=== PATIENT | male | born 1960 | race Asian ===

== ENCOUNTER 2016-08-23 11:35 | Emergency (ER) | payer OTHER ==
[2016-08-23 12:11] VITALS: TEMP 98.1; BMI 32.1
[2016-08-23] MEDS ORDERED: OXYCODONE/APAP 5/325MG COMBO TABLET PO ONE (13:20)
--- NOTE | 2016-08-23 13:22 | PDOC ---
History of Present Illness - History of Present Illness Initial Comments: 08/23/16 15:49 Patient is a 55 year old male with significant medical hx of gout and diabetes who is presenting to the ED with swelling to the left knee for four days. Patient reports he is unable to bear weight to his left knee since due to pain. Daughter reports the patient had a subjective fever on Monday and that the swelling was also significantly worse, but seems to have improved. The patient states that hes been working every day; he works as a local company truck driver. Denies chills, recent trauma, heavy lifting, hip pain, or injuries. Surgical Hx: Left shoulder arthroscopy (Charan Vasquez MD) <Michelle Pollard - Last Filed: 08/23/16 15:49> <Beto Borjas - Last Filed: 08/23/16 20:34> - General Chief Complaint: Pain Stated Complaint: SWOLLEN LT KNEE Time Seen by Provider: 08/23/16 12:28 Past History <Michelle Pollard - Last Filed: 08/23/16 15:49> - Past Medical History Anemia: No Asthma: No Cardiac Disorders: No CVA: No COPD: No CHF: No Dementia: No Diabetes: Yes GI Disorders: No Disorders: No HTN: No (VARIES) Hypercholesterolemia: No Liver Disease: No Seizures: No Thyroid Disease: No Other medical history: GOUT - Surgical History Orthopedic Surgery: Yes (LEFT SHOULDER ARTHROSCOPY) - Psycho/Social/Smoking Cessation Hx Suicidal Ideation: No Smoking History: Never smoked Hx Alcohol Use: No Drug/Substance Use Hx: No Substance Use Type: Alcohol <Beto Borjas - Last Filed: 08/23/16 20:34> - Past Medical History Allergies/Adverse Reactions: Allergies Allergy/AdvReac Type Severity Reaction Status Date / Time No Known Drug Allergies Allergy Verified 08/23/16 12:05 Home Medications: Ambulatory Orders Indomethacin 25 mg PO BID 08/23/16 Oxycodone HCl/Acetaminophen [Percocet 5-325 mg Tablet -] 1 combo PO Q6H PRN #14 tablet MDD 4 08/23/16 Review of Systems - Review of Systems Comments:: 08/23/16 15:50 CONSTITUTIONAL: No reported: Fever, Chills, Diaphoresis, Generalized Weakness, Malaise, Loss of Appetite HEENT: No reported: Rhinorrhea, Nasal Congestion, Throat Pain, Throat Swelling, Difficulty Swallowing, Mouth Swelling, Ear Pain, Eye Pain, Visual Changes CARDIOVASCULAR: No reported: Chest Pain, Syncope, Palpitations, Irregular Heart Rate, Lightheadedness, Peripheral Edema RESPIRATORY: No reported: Cough, Shortness of Breath, SOB with Exertion, Orthopnea, Wheezing , Stridor, Hemoptysis GASTROINTESTINAL: No reported: Abdominal pain, Abdominal Distension, Nausea, Vomiting, Diarrhea, Constipation, Melena, Hematochezia GENITOURINARY: No reported: Dysuria, Frequency, Urgency, Hesitancy, Flank Pain, Genital Pain MUSCULOSKELETAL: Reported: Bilateral Knee Pain and Swelling No reported: Myalgia, Back pain, Neck Pain SKIN: No reported: Rash, Itching, Pallor HEMEATOLOGIC/IMMUNOLOGIC: No reported: Easy Bleeding, Easy Bruising, Lymphadenopathy, Frequent infections ENDOCRINE: No reported: Unexplained Weight Gain, Unexplained Weight Loss, Heat Intolerance , Cold Intolerance NEUROLOGIC: No reported: Headache, Focal Weakness, Paresthesias, Vertigo, Lightheadedness, Unsteady Gait, Seizure, Mental Status Changes, Incontinence PSYCHIATRIC: No reported: Anxiety, Depression <Atul,Michelle - Last Filed: 08/23/16 15:49> *Physical Exam - Vital Signs Last Vital Signs Temp Pulse Resp BP Pulse Ox 98.1 F 91 H 19 133/92 95 08/23/16 12:06 08/23/16 12:06 08/23/16 12:06 08/23/16 12:06 08/23/16 12:06 - Physical Exam Comments: 08/23/16 15:50 GENERAL: The patient is awake, alert, and fully oriented, Nontoxic - in no acute distress. ENT: Normal voice, Moist mucous membranes. LUNGS: Breath sounds equal, clear to auscultation bilaterally. No wheezes, no rhonchi, no rales. HEART: Regular rate and rhythm, normal S1 and S2 without murmur, rub or gallop. ABDOMEN: Soft, nontender, normoactive bowel sounds. No guarding, no rebound. . No CVA tenderness EXTREMITIES:large prepapatellar effusion on L knee, no erythema, no warmth, able to ROM knee approx 30 degrees, no calf tendenress or swelling. No focal bony tenderness. NEUROLOGICAL: No facial assymetry, Normal speech, omoving all 4 extremities spontaneously and symmetrically PSYCH: Normal mood, normal affect. SKIN: Warm, Dry, normal turgor, <Michelle Pollard - Last Filed: 08/23/16 15:49> - Vital Signs Last Vital Signs Temp Pulse Resp BP Pulse Ox 98.1 F 91 H 19 133/92 95 08/23/16 12:06 08/23/16 12:06 08/23/16 12:06 08/23/16 12:06 08/23/16 12:06 <Beto Borjas - Last Filed: 08/23/16 20:34> ED Treatment Course - LABORATORY CBC & Chemistry Diagram: 08/23/16 14:11 08/23/16 14:11 - RADIOLOGY Radiograph Interpretation: 08/23/16 13:58 Left Knee X-Ray Impression: Arthritic changes. Suprapatellar joint effusion. No acute fracture appreciated. Reported By: Beni Espinoza MD <Michelle Pollard - Last Filed: 08/23/16 15:49> - LABORATORY CBC & Chemistry Diagram: 08/23/16 14:11 08/23/16 14:11 <Beto Borjas - Last Filed: 08/23/16 20:34> Medical Decision Making - Medical Decision Making 08/23/16 13:20 55y M hx gout presents with 4 days of L knee pain and swelling, family notes subjective fever on monday and significant swelling, however swelling has decresaed, but pt still in persistent pain so presents to the ED. Pt denies any recent trauma/injury. pt taking indomethicin without improvement. will obtain cbc, cmp, uric acid level no signs of septic arthritis - no warmth/induration/erythema suspect large knee effusion will obtain xrya to r/o occult fx A portion of this note was documented by scribe services under my direction. I have reviewed the details of the note, within reason, and agree with the documentation with the following case summary and management plan written by me 08/23/16 15:27 labs reviewed xray noted for large srprapatallar effusion will have pt fu with dr. schafer for reealuation pt feleling improved with meds I discussed the physical exam findings, ancillary test results and final diagnoses with the patient. I answered all of the patient's questions. The patient was satisfied with the care received and felt comfortable with the discharge plan and treatment plan. The patient will call their primary care physician within 24 hours to arrange follow-up and will return to the Emergency Department with any new, persistent or worsening symptoms. <Beto Borjas - Last Filed: 08/23/16 20:34> *DC/Admit/Observation/Transfer - Attestations Scribe Attestion: 08/23/16 15:51 Documentation prepared by Michelle Pollard, acting as medical diagnostic radiographer for Beto Borjas MD. <Michelle Pollard - Last Filed: 08/23/16 15:49> - Discharge Dispostion Admit: No <Beto Borjas - Last Filed: 08/23/16 20:34> Diagnosis at time of Disposition: Effusion of knee Qualifiers: Laterality: left Qualified Code(s): M25.462 - Effusion, left knee - Discharge Dispostion Disposition: HOME Condition at time of disposition: Improved - Prescriptions Prescriptions: Oxycodone HCl/Acetaminophen [Percocet 5-325 mg Tablet -] 1 combo PO Q6H PRN #14 tablet MDD 4 PRN Reason: Pain - Referrals Referrals: Andrzej England MD [Primary Care Provider] - Niels Schafer MD [Staff Physician] - - Patient Instructions Printed Discharge Instructions: DI for Knee Effusion Additional Instructions: Return to the emergency department immediately with ANY new, persistent or worsening symptoms. You MUST call and follow up with your doctor tomorrow for further evaluation of your symptoms. Results were discussed with you. Please make sure your doctor reviews the results of your emergency evaluation. If you had any xrays during your visit, it was read preliminarily by myself, a Radiologist will review it and if there are any additional findings we will call you. Print Language: UPPER SORBIAN
[2016-08-23] MEDS ORDERED: OXYCODONE/APAP 5/325MG COMBO TABLET ONE (14:04)
[2016-08-23 14:41] LABS: MCH 29.5 pg (25.7-33.7); MCHC 32.2 g/dl (32.0-35.9); MEAN CELL VOLUME 91.7 fl (80-96); MEAN PLT VOLUME 8.2 fl (7.5-11.1); PLATELET COUNT 260 K/MM3 (134-434); RDW 14.9 % (11.9-15.9); WHITE BLOOD COUNT 12.7 K/mm3 (4.0-10.0)
[2016-08-23 14:56] LABS: ALBUMIN 3.2 g/dl (3.4-5.0); ALK PHOS 78 U/L (45-117); ANION GAP 7 (8-16); BILIRUBIN,TOTAL 0.7 mg/dL (0.2-1.0); CALCIUM 9.2 mg/dL (8.5-10.1); CO2 31 mmol/L (21-32); GLUCOSE,RANDOM 158 mg/dL (74-106); SGOT/AST 14 U/L (15-37); SGPT/ALT 25 U/L (12-78); TOT PROT 6.7 g/dl (6.4-8.2)
[2016-08-23 15:09] LABS: URIC ACID 5.3 mg/dL (2.6-7.2)
[2016-08-23 18:52] VITALS: BP 134/68; PULSE 86
== END 2016-08-23 15:38 | disposition home or self-care (01) ==
LOC: JER 11:35
DX: M25.462 Effusion, left knee (principal); E11.9 Type 2 diabetes mellitus without complications; M10.9 Gout, unspecified
CPT/HCPCS: 36415; 73560-TC-LT; 80053; 84550; 85027; 99282-25

== ENCOUNTER 2019-02-05 10:50 | Emergency (ER) | payer OTHER ==
[2019-02-05 11:03] VITALS: BP 132/83; PULSE 98; TEMP 98.2; BMI 31.0
[2019-02-05] MEDS ORDERED: diazePAM 2 MG TABLET PO ONE (11:24)
[2019-02-05] MEDS ORDERED: KETOROLAC TROMETHAMINE 30 MG/1 ML VIAL IM ONE (11:25)
[2019-02-05] MEDS ORDERED: KETOROLAC TROMETHAMINE 30 MG/1 ML VIAL ONE (11:26)
[2019-02-05] MEDS ORDERED: diazePAM 2 MG TABLET ONE (11:26)
--- NOTE | 2019-02-05 11:28 | PDOC ---
History of Present Illness - General Chief Complaint: Chest Pain Stated Complaint: CHEST PAIN Time Seen by Provider: 02/05/19 11:22 - History of Present Illness Initial Comments: 02/05/19 11:36 The patient is a 58 year old male with a history of DM who presents for evaluation of chest pain. The patient reports that he went mariela jumping 3 days ago and since then has been having bilateral poorly described chest pain worse with movement prompting his presentation to the ED for further evaluation. The patient denies similar symptoms in the past and has not taken any medication at home. He otherwise denies fevers, chills, SOB, nausea, vomiting, abdominal pain, or changes with urination or bowel movements. Past History - Past Medical History Allergies/Adverse Reactions: Allergies Allergy/AdvReac Type Severity Reaction Status Date / Time No Known Drug Allergies Allergy Verified 02/05/19 11:03 Home Medications: Ambulatory Orders Indomethacin 25 mg PO BID 08/23/16 Oxycodone HCl/Acetaminophen [Percocet 5-325 mg Tablet -] 1 combo PO Q6H PRN #14 tablet MDD 4 08/23/16 Naproxen [Naprosyn -] 500 mg PO BID #14 tablet 02/05/19 Anemia: No Asthma: No Cardiac Disorders: No CVA: No COPD: No CHF: No Dementia: No Diabetes: Yes GI Disorders: No Disorders: No HTN: No (VARIES) Hypercholesterolemia: No Liver Disease: No Seizures: No Thyroid Disease: No - Surgical History Orthopedic Surgery: Yes (LEFT SHOULDER ARTHROSCOPY) - Immunization History Immunization Up to Date: Yes - Suicide/Smoking/Psychosocial Hx Smoking History: Never smoked Have you smoked in the past 12 months: No Information on smoking cessation initiated: No Hx Alcohol Use: No Drug/Substance Use Hx: No Substance Use Type: Alcohol Review of Systems - Review of Systems Comments:: 02/05/19 11:53 Constitutional: No fevers, chills, fatigue, malaise HEENT: No Rhinorrhea, nasal congestion, visual changes Cardiovascular: Chest pain. No syncope, palpitations, lightheadedness Respiratory: No Cough, SOB, Hemoptysis, Gastrointestinal: No Abdominal pain, Nausea, Vomiting, Constipation, Diarrhea, Melena Genitourinary: No Dysuria, Frequency, Urgency, Hesitancy, Hematuria, Flank pain Musculoskeletal: No Myalgia, arthralgia Skin: No rashes, itching, bruising, pallor Neurologic: No Headache, Dizziness, Numbness, Weakness, or Tingling Psychiatric: No Hallucinations. No SI or HI *Physical Exam - Vital Signs Last Vital Signs Temp Pulse Resp BP Pulse Ox 98.2 F 98 H 18 132/83 97 02/05/19 10:58 02/05/19 10:58 02/05/19 10:58 02/05/19 10:58 02/05/19 10:58 - Physical Exam Comments: 02/05/19 11:53 General Appearance: Nourished. No Apparent Distress HEENT: No Pharyngeal Erythema, Tonsillar Exudate, Tonsillar Erythema Neck: No Cervical Lymphadenopathy Respiratory/Chest: Lungs Clear, Normal Breath Sounds. Reproducible tenderness to palpation along the sternal borders. No Crackles, Rales, Rhonchi, Wheezing Cardiovascular: Regular Rhythm, Regular Rate. No Murmur, Gallops, Rubs Gastrointestinal/Abdominal: Normal Bowel Sounds, Soft. No Guarding, Rebound, Tenderness Musculoskeletal: No CVA Tenderness Extremity: Normal Capillary Refill Integumentary: Normal Color, Dry, Warm Neurologic: Fully Oriented, Alert, Normal Mood/Affect, Normal Response, Heart Score/ECG Review #1 ECG reviewed & interpreted by me at: 11:54 02/05/19 11:54 HR 88 [place] 158 QRS 100 QTc 471 Normal Sinus Rhythm Left anterior fascicular block No Acute ST Changes ED Treatment Course - LABORATORY CBC & Chemistry Diagram: 02/05/19 11:30 Medical Decision Making - Medical Decision Making 02/05/19 11:38 The patient is a 58 year old male with a history of DM who presents for evaluation of chest pain. Differential includes but is not limited to: ACS, Musculoskeletal, Costochondritis, Infectious, Metabolic Derangement. Given the patient's his history and physical exam, we will obtain a cbc, cmp, ekg, chest plain film to evaluate further. It is likely the patient's symptoms are musculoskeletal in nature given his recent mariela jumping. We will treat with toradol and valium and will continue to monitor and reassess while here in the ED. 02/05/19 13:13 Cbc, troponin are unremarkable. Chest plain film is unremarkable. The patient was reassessed and reports improvement in their symptoms. It is likely the patient's symptoms are musculoskeletal in nature. We are comfortable discharging the patient home in stable condition. Patient and family made aware of impression and plan, return precautions discussed including but not limited to worsening pain or symptoms, fevers, or signs of infection, chest pain, respiratory distress, inability to tolerate oral intake, dehydration, syncope, or neurologic changes. The patient is to follow up with PMD as recommended within 1 week, follow up information provided and the patient will call for an appointment. The patient is to take medications as instructed for duration of time and continue with supportive care, avoid triggers and precipitants. Patient is safe for outpatient follow-up. *DC/Admit/Observation/Transfer Diagnosis at time of Disposition: Chest pain Qualifiers: Chest pain type: unspecified Qualified Code(s): R07.9 - Chest pain, unspecified - Discharge Dispostion Disposition: HOME Condition at time of disposition: Stable - Prescriptions Prescriptions: Naproxen [Naprosyn -] 500 mg PO BID #14 tablet - Referrals - Patient Instructions Printed Discharge Instructions: DI for Atypical Chest Pain Additional Instructions: 1) Please follow-up with your primary care doctor in the next 2-3 days. Please call tomorrow to schedule a follow up appointment. If you cannot follow up with your doctor within 1 week please return to the Emergency Department for any urgent issues. 2) Your laboratory / imaging results were normal here in the ER. 3) If you have any worsening of symptoms or any other concerns, please return to the ER immediately. Return if worsening symptoms including fevers, headache, vomiting, visual or hearing disturbances, abdominal pain, chest pain, shortness of breath, syncope, dehydration, inability to take things by mouth/vomiting, altered mental status, or worsening concerning symptoms. 4) Please continue taking your home medications as directed. Side effects may include upset stomach, abdominal pain, vomiting, or diarrhea. Do not drink alcohol with your medications. - Post Discharge Activity
[2019-02-05 12:18] LABS: BASO % 0.6 % (0-2.0); EOS % 1.7 % (0-4.5); HEMATOCRIT 45.4 % (35.4-49); HEMOGLOBIN 15.2 GM/dL (11.7-16.9); LYMPH % 20.4 % (8-40); MCH 30.8 pg (25.7-33.7); MCHC 33.5 g/dl (32.0-35.9); MEAN CELL VOLUME 92.1 fl (80-96); MEAN PLT VOLUME 8.4 fl (7.5-11.1); NEUT % 71.3 % (42.8-82.8); PLATELET COUNT 217 K/MM3 (134-434); RBC 4.92 M/mm3 (4.00-5.60); RDW 13.4 % (11.9-15.9); WHITE BLOOD COUNT 7.2 K/mm3 (4.0-10.0)
--- NOTE | 2019-02-05 13:01 | EKG ---
Test Reason : Blood Pressure : / mmHG Vent. Rate : 088 BPM Atrial Rate : 088 BPM P-R Int : 158 ms QRS Dur : 100 ms QT Int : 390 ms P-R-T Axes : 046 -83 044 degrees QTc Int : 471 ms NORMAL SINUS RHYTHM POSSIBLE LEFT ATRIAL ENLARGEMENT LEFT ANTERIOR FASCICULAR BLOCK ABNORMAL ECG WHEN COMPARED WITH ECG OF 31-MAY-2013 13:23, NO SIGNIFICANT CHANGE WAS FOUND Confirmed by MD Bebeto, Truong ([id number]) on 02/05/2019 1:00:37 PM Referred By: Confirmed By:Truong Tate MD
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
== END 2019-02-05 13:16 | disposition home or self-care (01) ==
LOC: JER 10:50
PROC: 3E0233Z Introduction of Anti-inflammatory into Muscle, Percutaneous Approach (ICD-10-PCS; principal; 2019-02-05)
DX: R07.9 Chest pain, unspecified (principal); E11.9 Type 2 diabetes mellitus without complications; W17.89XA Other fall from one level to another, initial encounter; Y93.39 Activity, other involving climbing, rappelling and jumping off; Y92.89 Other specified places as the place of occurrence of the external cause; Y99.8 Other external cause status
CPT/HCPCS: 36415; 71045-TC-FY; 82550; 84484; 85025; 93005; 93010; 99282-25

== ENCOUNTER 2020-06-04 07:43 | Inpatient (IN) | payer OTHER ==
[2020-06-04] MEDS ORDERED: ACETAMINOPHEN 500 MG TABLET (FP) PO ONE (07:55)
[2020-06-04] MEDS ORDERED: DEXAMETHASONE 4 MG TABLET (FP) PO ONE ×2 (07:58→08:07)
[2020-06-04] MEDS ORDERED: DEXAMETHASONE SOD PHOSPHATE 10 MG/1 ML VIAL ONE (08:53)
[2020-06-04 09:26] LABS: INR 1.17 (0.83-1.09); PROTHROMBIN TIME (PATIENT) 14.3 SEC (9.7-13.0)
[2020-06-04 09:29] LABS: ACTIVATED PTT 34.1 SECONDS (25.2-36.5)
[2020-06-04 09:33] LABS: CHLORIDE 102 mmol/L (98-107); POTASSIUM 4.4 mmol/L (3.5-5.1); SODIUM 135 mmol/L (136-145)
[2020-06-04 09:35] LABS: CALCIUM 7.7 mg/dL (8.5-10.1)
[2020-06-04 09:36] LABS: BASO % 0.4 % (0-2.0); HEMATOCRIT 44.5 % (35.4-49); HEMOGLOBIN 14.9 GM/dL (11.7-16.9); LYMPH % 7.9 % (8-40); MCH 31.1 pg (25.7-33.7); MCHC 33.5 g/dl (32.0-35.9); MEAN CELL VOLUME 92.9 fl (80-96); MEAN PLT VOLUME 7.9 fl (7.5-11.1); MONO % 6.4 % (3.8-10.2); NEUT % 85.3 % (42.8-82.8); PLATELET COUNT 297 K/MM3 (134-434); RBC 4.79 M/mm3 (4.00-5.60); RDW 13.7 % (11.9-15.9); WHITE BLOOD COUNT 9.7 K/mm3 (4.0-10.0)
[2020-06-04 09:36] LABS: ALBUMIN 2.6 g/dl (3.4-5.0); ANION GAP 9 MMOL/L (8-16); BLOOD UREA NITROGEN 11.2 mg/dL (7-18); CO2 25 mmol/L (21-32); GLUCOSE,RANDOM 181 mg/dL (74-106)
[2020-06-04 09:38] LABS: BILIRUBIN,DIRECT 0.2 mg/dL (0.0-0.2); SGOT/AST 50 U/L (15-37); SGPT/ALT 37 U/L (13-61)
[2020-06-04 09:40] LABS: BILIRUBIN,TOTAL 0.4 mg/dL (0.2-1); LDH 469 U/L (87-246); TOT PROT 6.3 g/dl (6.4-8.2)
[2020-06-04 09:42] LABS: ALK PHOS 71 U/L (45-117)
[2020-06-04] MEDS: ENOXAPARIN NA (PORCINE) 40 MG/0.4 ML DISP.SYRIN SQ SCH (11:02)
[2020-06-04] MEDS ORDERED: AZITHROMYCIN IVPB 500 MG in DEXTROSE 5%-WATER - 250 ML IVPB ONE (11:30)
[2020-06-04] MEDS ORDERED: AZITHROMYCIN IVPB 250 MG in DEXTROSE 5%-WATER - 250 ML IVPB SCH (11:45)
[2020-06-04] MEDS: INSULIN SLIDING SCALE (NOVOLOG) 1 VIAL SQ SCH ×3 (12:09→21:44)
[2020-06-04] MEDS ORDERED: CEFTRIAXONE 1 GM/50 ML BAG ONE (12:11)
[2020-06-04] MEDS ORDERED: AZITHROMYCIN IVPB 500 MG/250 ML BAG IVPB ONE (12:12)
[2020-06-04] MEDS: CEFTRIAXONE 1 GM in DEXTROSE 5%-WATER - 50 ML IVPB SCH (12:20)
[2020-06-04] MEDS ORDERED: REMDESIVIR 200 MG in SODIUM CHLORIDE 210 ML IVPB ONE (15:00)
[2020-06-04] MEDS ORDERED: ACETAMINOPHEN 325 MG TABLET (FP) PO ONE (15:36)
[2020-06-04] MEDS ORDERED: guaiFENesin/D-M SUGAR-FREE/ACLHOL-FREE 118 ML BOTTLE PO PRN (18:21)
[2020-06-04 22:40] LABS: PH,URINE 5.5 (5.0-8.0); URINE APPEARANCE Clear; URINE BILIRUBIN Negative (NEGATIVE); URINE COLOR Yellow; URINE GLUCOSE (UA) 2+ (NEGATIVE); URINE KETONE 1+ (NEGATIVE); URINE LEUK ESTERASE Negative (NEGATIVE); URINE NITRITE Negative (NEGATIVE); URINE PROTEIN 1+ (NEGATIVE); URINE UROBILINOGEN 0.2 mg/dL (0.2-1.0)
[2020-06-04 23:06] LABS: ALLENS TEST POSITIVE; ARTERIAL BLD GAS O2 SATURATION 92.6 mmHg (95-98); ARTERIAL BLOOD GAS BASE EXCESS -0.3 mmol/L (-2-2); ARTERIAL BLOOD GAS PO2 63.3 mmHg (80-100); ARTERIAL BLOOD GAS pH 7.413 (7.350-7.450)
[2020-06-05] MEDS ORDERED: MELATONIN 5 MG TABLETS PO ONE (00:36)
[2020-06-05] MEDS: INSULIN SLIDING SCALE (NOVOLOG) 1 VIAL SQ SCH ×4 (06:48→21:51)
[2020-06-05] MEDS ORDERED: INSULIN (NOVOLOG) ASPART 100 UNITS/ML 10ML VIAL ONE (07:48)
[2020-06-05] MEDS ORDERED: ZINC SULFATE 220 MG CAPSULE (FP) PO SCH (10:00)
[2020-06-05] MEDS ORDERED: CHOLECALCIFEROL (VIT D3) 1,000 UNIT (25 MCG) TABLET PO SCH (10:00)
[2020-06-05] MEDS ORDERED: DEXAMETHASONE SOD PHOSPHATE 4 MG/1 ML VIAL IVPUSH SCH (10:00)
[2020-06-05 10:06] LABS: HEMATOCRIT 44.5 % (35.4-49); HEMOGLOBIN 14.8 GM/dL (11.7-16.9); MCHC 33.3 g/dl (32.0-35.9); MEAN CELL VOLUME 93.3 fl (80-96); MEAN PLT VOLUME 7.9 fl (7.5-11.1); PLATELET COUNT 424 K/MM3 (134-434); RBC 4.77 M/mm3 (4.00-5.60); WHITE BLOOD COUNT 14.9 K/mm3 (4.0-10.0)
[2020-06-05 10:28] LABS: POTASSIUM 4.9 mmol/L (3.5-5.1)
[2020-06-05 10:34] LABS: BLOOD UREA NITROGEN 17.6 mg/dL (7-18); CALCIUM 8.4 mg/dL (8.5-10.1)
[2020-06-05 10:36] LABS: PHOSPHOROUS 2.6 mg/dL (2.5-4.9)
[2020-06-05] MEDS ORDERED: cefTRIAXone SODIUM 1 GM VIAL ONE (11:08)
[2020-06-05] MEDS ORDERED: DEXTROSE 5%-WATER - 50 ML IVPB ONE (11:09)
[2020-06-05] MEDS: CEFTRIAXONE 1 GM in DEXTROSE 5%-WATER - 50 ML IVPB SCH (11:20)
[2020-06-05] MEDS: ENOXAPARIN NA (PORCINE) 40 MG/0.4 ML DISP.SYRIN SQ SCH (11:21)
[2020-06-05] MEDS: FAMOTIDINE 20 MG/50 ML IVPB 20 MG/50 ML MG IVPB SCH ×2 (11:21→21:40)
[2020-06-05] MEDS: ASCORBIC ACID 250 MG TABLET (FP) PO SCH ×2 (11:44→21:40)
[2020-06-05] MEDS: AZITHROMYCIN IVPB 250 MG in DEXTROSE 5%-WATER - 250 ML IVPB SCH ×2 (11:45→14:17)
[2020-06-05] MEDS ORDERED: PT OWN MED DRAWER 7, Y5N ONE (12:17)
[2020-06-05] MEDS ORDERED: REMDESIVIR 100 MG in SODIUM CHLORIDE 230 ML IVPB SCH (15:00)
[2020-06-05] MEDS ORDERED: ENOXAPARIN NA (PORCINE) 100 MG/1 ML DISP.SYRIN SQ SCH (22:00)
[2020-06-06] MEDS: INSULIN SLIDING SCALE (NOVOLOG) 1 VIAL SQ SCH ×4 (06:33→21:08)
[2020-06-06 07:19] LABS: BASO % 0.3 % (0-2.0); HEMATOCRIT 43.7 % (35.4-49); HEMOGLOBIN 14.2 GM/dL (11.7-16.9); LYMPH % 8.2 % (8-40); MCH 30.5 pg (25.7-33.7); MCHC 32.6 g/dl (32.0-35.9); MEAN CELL VOLUME 93.6 fl (80-96); MEAN PLT VOLUME 7.8 fl (7.5-11.1); MONO % 7.1 % (3.8-10.2); NEUT % 84.4 % (42.8-82.8); PLATELET COUNT 436 K/MM3 (134-434); RBC 4.67 M/mm3 (4.00-5.60); RDW 14.4 % (11.9-15.9); WHITE BLOOD COUNT 13.6 K/mm3 (4.0-10.0)
[2020-06-06 08:06] LABS: ALBUMIN 2.4 g/dl (3.4-5.0); CALCIUM 8.2 mg/dL (8.5-10.1); MAGNESIUM 2.7 mg/dL (1.8-2.4)
[2020-06-06 08:07] LABS: BILIRUBIN,TOTAL 0.5 mg/dL (0.2-1); TOT PROT 6.4 g/dl (6.4-8.2)
[2020-06-06 08:09] LABS: CREATININE 0.8 mg/dL (0.55-1.3); PHOSPHOROUS 3.8 mg/dL (2.5-4.9)
[2020-06-06 09:08] LABS: ERYTHROCYTE SEDIMENTATION RATE 67 mm/hr (0-20)
[2020-06-06] MEDS ORDERED: PT OWN MED DRAWER 7, Y5N ONE ×3 (09:28→21:17)
[2020-06-06] MEDS: ENOXAPARIN NA (PORCINE) 100 MG/1 ML DISP.SYRIN SQ SCH ×2 (09:30→21:08)
[2020-06-06] MEDS: CHOLECALCIFEROL (VIT D3) 1,000 UNIT (25 MCG) TABLET PO SCH (09:30)
[2020-06-06] MEDS: DEXAMETHASONE SOD PHOSPHATE 4 MG/1 ML VIAL IVPUSH SCH (09:31)
[2020-06-06] MEDS: FAMOTIDINE 20 MG/50 ML IVPB 20 MG/50 ML MG IVPB SCH ×2 (09:31→21:08)
[2020-06-06] MEDS: ZINC SULFATE 220 MG CAPSULE (FP) PO SCH (09:31)
[2020-06-06 09:36] LABS: ANISOCYTOSIS 0; HELMET CELLS 0; HOWELL-JOLLY BODIES 0; MACROCYTOSIS 0; OVALOCYTE 0; PLATELET ESTIMATE INCREASED; ROULEAU 0; SICKELED CELLS 0; TARGET CELLS 0; TEAR DROP CELLS 0; TOXIC GRANULATION 0
[2020-06-06] MEDS ORDERED: ASCORBIC ACID 250 MG TABLET (FP) PO SCH (10:00)
[2020-06-06] MEDS: AZITHROMYCIN IVPB 250 MG in DEXTROSE 5%-WATER - 250 ML IVPB SCH (11:46)
[2020-06-06] MEDS: guaiFENesin/D-M SUGAR-FREE/ACLHOL-FREE 118 ML BOTTLE PO PRN (14:10)
[2020-06-06] MEDS: REMDESIVIR 100 MG in SODIUM CHLORIDE 230 ML IVPB SCH (14:56)
[2020-06-06] MEDS ORDERED: DEXTROSE 5%-WATER - 50 ML IVPB ONE (16:39)
[2020-06-06] MEDS ORDERED: cefTRIAXone SODIUM 1 GM VIAL ONE (16:39)
[2020-06-06] MEDS: CEFTRIAXONE 1 GM in DEXTROSE 5%-WATER - 50 ML IVPB SCH (16:43)
[2020-06-06] MEDS: ASCORBIC ACID 500 MG TABLET (FP) PO SCH (21:08)
[2020-06-07] MEDS: INSULIN SLIDING SCALE (NOVOLOG) 1 VIAL SQ SCH ×4 (06:53→21:42)
[2020-06-07] MEDS ORDERED: PT OWN MED DRAWER 7, Y5N ONE ×2 (07:46→19:34)
[2020-06-07 09:15] LABS: POTASSIUM 5.5 mmol/L (3.5-5.1)
[2020-06-07 09:17] LABS: ALBUMIN 2.4 g/dl (3.4-5.0); BLOOD UREA NITROGEN 25.2 mg/dL (7-18); CALCIUM 8.1 mg/dL (8.5-10.1)
[2020-06-07 09:20] LABS: CREATININE 0.8 mg/dL (0.55-1.3)
[2020-06-07 09:22] LABS: BILIRUBIN,TOTAL 0.5 mg/dL (0.2-1); TOT PROT 6.4 g/dl (6.4-8.2)
[2020-06-07 09:23] LABS: BASO % 0.2 % (0-2.0); EOS % 0.1 % (0-4.5); HEMATOCRIT 45.3 % (35.4-49); HEMOGLOBIN 14.9 GM/dL (11.7-16.9); LYMPH % 6.7 % (8-40); MCH 30.6 pg (25.7-33.7); MCHC 32.8 g/dl (32.0-35.9); MEAN CELL VOLUME 93.4 fl (80-96); MONO % 8.4 % (3.8-10.2); NEUT % 84.6 % (42.8-82.8); PLATELET COUNT 485 K/MM3 (134-434); RBC 4.85 M/mm3 (4.00-5.60); RDW 14.2 % (11.9-15.9); WHITE BLOOD COUNT 13.8 K/mm3 (4.0-10.0)
[2020-06-07] MEDS ORDERED: cefTRIAXone SODIUM 1 GM VIAL ONE (09:32)
[2020-06-07] MEDS ORDERED: DEXTROSE 5%-WATER - 50 ML IVPB ONE (09:32)
[2020-06-07] MEDS: DEXAMETHASONE SOD PHOSPHATE 4 MG/1 ML VIAL IVPUSH SCH (09:52)
[2020-06-07] MEDS: ENOXAPARIN NA (PORCINE) 100 MG/1 ML DISP.SYRIN SQ SCH ×2 (09:52→21:42)
[2020-06-07] MEDS: CHOLECALCIFEROL (VIT D3) 1,000 UNIT (25 MCG) TABLET PO SCH (09:52)
[2020-06-07] MEDS: ASCORBIC ACID 500 MG TABLET (FP) PO SCH ×2 (09:52→21:42)
[2020-06-07] MEDS: ZINC SULFATE 220 MG CAPSULE (FP) PO SCH (09:52)
[2020-06-07] MEDS: FAMOTIDINE 20 MG/50 ML IVPB 20 MG/50 ML MG IVPB SCH ×2 (09:53→21:42)
[2020-06-07] MEDS: CEFTRIAXONE 1 GM in DEXTROSE 5%-WATER - 50 ML IVPB SCH (10:26)
[2020-06-07 11:08] LABS: ANISOCYTOSIS 1+; MACROCYTOSIS 0; PLATELET ESTIMATE NORMAL
[2020-06-07] MEDS: AZITHROMYCIN IVPB 250 MG in DEXTROSE 5%-WATER - 250 ML IVPB SCH (11:29)
[2020-06-07] MEDS: REMDESIVIR 100 MG in SODIUM CHLORIDE 230 ML IVPB SCH (16:04)
[2020-06-08] MEDS: MELATONIN 5 MG TABLETS PO ONE ×2 (00:49→04:09)
[2020-06-08] MEDS: ACETAMINOPHEN 325 MG TABLET (FP) PO ONE ×2 (00:49→04:09)
[2020-06-08] MEDS: INSULIN SLIDING SCALE (NOVOLOG) 1 VIAL SQ SCH ×4 (06:26→21:55)
[2020-06-08 08:43] LABS: POTASSIUM 4.8 mmol/L (3.5-5.1)
[2020-06-08 08:45] LABS: ALBUMIN 2.5 g/dl (3.4-5.0); BLOOD UREA NITROGEN 21.8 mg/dL (7-18); CALCIUM 8.3 mg/dL (8.5-10.1)
[2020-06-08 08:49] LABS: CREATININE 0.8 mg/dL (0.55-1.3)
[2020-06-08 08:50] LABS: BILIRUBIN,TOTAL 0.7 mg/dL (0.2-1); TOT PROT 6.5 g/dl (6.4-8.2)
[2020-06-08] MEDS ORDERED: DEXTROSE 5%-WATER - 50 ML IVPB ONE (08:58)
[2020-06-08] MEDS ORDERED: cefTRIAXone SODIUM 1 GM VIAL ONE (08:58)
[2020-06-08] MEDS: DEXAMETHASONE SOD PHOSPHATE 4 MG/1 ML VIAL IVPUSH SCH (09:00)
[2020-06-08] MEDS: ZINC SULFATE 220 MG CAPSULE (FP) PO SCH (09:01)
[2020-06-08] MEDS: ASCORBIC ACID 500 MG TABLET (FP) PO SCH ×2 (09:01→21:48)
[2020-06-08] MEDS: ENOXAPARIN NA (PORCINE) 100 MG/1 ML DISP.SYRIN SQ SCH ×2 (09:01→21:48)
[2020-06-08] MEDS: FAMOTIDINE 20 MG/50 ML IVPB 20 MG/50 ML MG IVPB SCH ×2 (09:02→21:48)
[2020-06-08] MEDS: CHOLECALCIFEROL (VIT D3) 1,000 UNIT (25 MCG) TABLET PO SCH (09:02)
[2020-06-08] MEDS: CEFTRIAXONE 1 GM in DEXTROSE 5%-WATER - 50 ML IVPB SCH (09:55)
[2020-06-08] MEDS: AZITHROMYCIN IVPB 250 MG in DEXTROSE 5%-WATER - 250 ML IVPB SCH (10:35)
[2020-06-08] MEDS ORDERED: INSULIN (LEVEMIR) 100 UNITS/ML UNITS SQ ONE (12:44)
[2020-06-08] MEDS: REMDESIVIR 100 MG in SODIUM CHLORIDE 230 ML IVPB SCH (15:18)
[2020-06-09] MEDS: INSULIN SLIDING SCALE (NOVOLOG) 1 VIAL SQ SCH ×4 (06:34→21:25)
[2020-06-09] MEDS ORDERED: INSULIN (LEVEMIR) 100 UNITS/ML UNITS SQ SCH (07:00)
[2020-06-09 07:55] LABS: BASO % 0.6 % (0-2.0); EOS % 0.4 % (0-4.5); HEMOGLOBIN 14.7 GM/dL (11.7-16.9); LYMPH % 6.2 % (8-40); MCH 30.8 pg (25.7-33.7); MCHC 33.5 g/dl (32.0-35.9); MONO % 3.5 % (3.8-10.2); NEUT % 89.3 % (42.8-82.8); PLATELET COUNT 542 K/MM3 (134-434); RBC 4.78 M/mm3 (4.00-5.60); RDW 13.8 % (11.9-15.9); WHITE BLOOD COUNT 18.5 K/mm3 (4.0-10.0)
[2020-06-09 08:15] LABS: POTASSIUM 4.6 mmol/L (3.5-5.1)
[2020-06-09 08:35] LABS: BILIRUBIN,TOTAL 0.8 mg/dL (0.2-1); TOT PROT 6.3 g/dl (6.4-8.2)
[2020-06-09 08:37] LABS: ALBUMIN 2.3 g/dl (3.4-5.0); BLOOD UREA NITROGEN 18.1 mg/dL (7-18)
[2020-06-09 08:40] LABS: MAGNESIUM 2.3 mg/dL (1.8-2.4)
[2020-06-09 08:41] LABS: CREATININE 0.8 mg/dL (0.55-1.3)
[2020-06-09] MEDS: ENOXAPARIN NA (PORCINE) 100 MG/1 ML DISP.SYRIN SQ SCH ×2 (09:27→21:25)
[2020-06-09] MEDS: ZINC SULFATE 220 MG CAPSULE (FP) PO SCH (09:27)
[2020-06-09] MEDS: DEXAMETHASONE SOD PHOSPHATE 4 MG/1 ML VIAL IVPUSH SCH (09:27)
[2020-06-09] MEDS: ASCORBIC ACID 500 MG TABLET (FP) PO SCH ×2 (09:27→21:25)
[2020-06-09] MEDS: FAMOTIDINE 20 MG/50 ML IVPB 20 MG/50 ML MG IVPB SCH ×2 (09:27→21:25)
[2020-06-09] MEDS: CHOLECALCIFEROL (VIT D3) 1,000 UNIT (25 MCG) TABLET PO SCH (09:27)
[2020-06-09 12:55] LABS: ANISOCYTOSIS 0; MACROCYTOSIS 0; PLATELET ESTIMATE NORMAL
[2020-06-09] MEDS ORDERED: ALPRAZolam 1 MG TABLET PO PRN (13:04)
[2020-06-09] MEDS ORDERED: ALPRAZolam 1 MG TABLET PO ONE (13:06)
[2020-06-09] MEDS ORDERED: REMDESIVIR 100 MG in SODIUM CHLORIDE 230 ML IVPB SCH (19:00)
[2020-06-10] MEDS ORDERED: PT OWN MED DRAWER 7, Y5N ONE ×3 (05:50→21:54)
[2020-06-10] MEDS: guaiFENesin/D-M SUGAR-FREE/ACLHOL-FREE 118 ML BOTTLE PO PRN ×3 (05:54→22:12)
[2020-06-10] MEDS: INSULIN SLIDING SCALE (NOVOLOG) 1 VIAL SQ SCH ×4 (06:09→22:12)
[2020-06-10] MEDS: INSULIN (LEVEMIR) 100 UNITS/ML UNITS SQ SCH (06:55)
[2020-06-10 07:26] LABS: BASO % 0.7 % (0-2.0); EOS % 0.7 % (0-4.5); HEMATOCRIT 46.3 % (35.4-49); HEMOGLOBIN 15.3 GM/dL (11.7-16.9); LYMPH % 5.3 % (8-40); MCH 30.7 pg (25.7-33.7); MCHC 32.9 g/dl (32.0-35.9); MEAN CELL VOLUME 93.1 fl (80-96); MONO % 2.8 % (3.8-10.2); NEUT % 90.5 % (42.8-82.8); PLATELET COUNT 463 K/MM3 (134-434); RBC 4.97 M/mm3 (4.00-5.60); RDW 14.1 % (11.9-15.9); WHITE BLOOD COUNT 17.5 K/mm3 (4.0-10.0)
[2020-06-10 07:49] LABS: CHLORIDE 104 mmol/L (98-107); POTASSIUM 5.1 mmol/L (3.5-5.1); SODIUM 138 mmol/L (136-145)
[2020-06-10 07:58] LABS: ALBUMIN 2.2 g/dl (3.4-5.0); BLOOD UREA NITROGEN 19.7 mg/dL (7-18); GLUCOSE,RANDOM 111 mg/dL (74-106)
[2020-06-10 07:59] LABS: ANION GAP 7 MMOL/L (8-16); CALCIUM 8.3 mg/dL (8.5-10.1); CO2 28 mmol/L (21-32); MAGNESIUM 2.6 mg/dL (1.8-2.4)
[2020-06-10 08:01] LABS: CREATININE 0.8 mg/dL (0.55-1.3); PHOSPHOROUS 3.9 mg/dL (2.5-4.9); SGOT/AST 48 U/L (15-37); SGPT/ALT 23 U/L (13-61)
[2020-06-10 08:03] LABS: BILIRUBIN,TOTAL 0.7 mg/dL (0.2-1); TOT PROT 6.2 g/dl (6.4-8.2)
[2020-06-10 08:04] LABS: ALK PHOS 99 U/L (45-117)
[2020-06-10 08:28] LABS: LDH QNS U/L (87-246)
[2020-06-10] MEDS: ZINC SULFATE 220 MG CAPSULE (FP) PO SCH (09:18)
[2020-06-10] MEDS: CHOLECALCIFEROL (VIT D3) 1,000 UNIT (25 MCG) TABLET PO SCH (09:18)
[2020-06-10] MEDS: ASCORBIC ACID 500 MG TABLET (FP) PO SCH ×2 (09:18→22:12)
[2020-06-10] MEDS: ENOXAPARIN NA (PORCINE) 100 MG/1 ML DISP.SYRIN SQ SCH ×2 (09:19→22:12)
[2020-06-10] MEDS: DEXAMETHASONE SOD PHOSPHATE 4 MG/1 ML VIAL IVPUSH SCH (09:19)
[2020-06-10] MEDS: FAMOTIDINE 20 MG/50 ML IVPB 20 MG/50 ML MG IVPB SCH ×2 (09:20→22:12)
[2020-06-10 09:26] LABS: ANISOCYTOSIS 0; MACROCYTOSIS 0; PLATELET ESTIMATE NORMAL
[2020-06-10] MEDS ORDERED: TOCILIZUMAB (ACTEMRA) 200 MG/10 ML VIAL IVPB SCH (12:45)
[2020-06-10] MEDS ORDERED: TOCILIZUMAB 800 MG in SODIUM CHLORIDE 60 ML IVPB ONE (13:00)
[2020-06-10] MEDS ORDERED: TOCILIZUMAB IVPB ONE (14:00)
[2020-06-10] MEDS ORDERED: SODIUM CHLORIDE IVPB ONE (14:00)
[2020-06-11] MEDS: INSULIN (LEVEMIR) 100 UNITS/ML UNITS SQ SCH (07:01)
[2020-06-11] MEDS: INSULIN SLIDING SCALE (NOVOLOG) 1 VIAL SQ SCH ×4 (07:02→21:47)
[2020-06-11] MEDS: guaiFENesin/D-M SUGAR-FREE/ACLHOL-FREE 118 ML BOTTLE PO PRN ×3 (07:02→22:04)
[2020-06-11 09:39] LABS: BASO % 0.3 % (0-2.0); EOS % 0.4 % (0-4.5); HEMATOCRIT 45.2 % (35.4-49); HEMOGLOBIN 14.9 GM/dL (11.7-16.9); LYMPH % 5.7 % (8-40); MCH 30.8 pg (25.7-33.7); MEAN CELL VOLUME 93.2 fl (80-96); MEAN PLT VOLUME 8.5 fl (7.5-11.1); MONO % 3.8 % (3.8-10.2); NEUT % 89.8 % (42.8-82.8); PLATELET COUNT 557 K/MM3 (134-434); RBC 4.85 M/mm3 (4.00-5.60); RDW 13.8 % (11.9-15.9); WHITE BLOOD COUNT 15.6 K/mm3 (4.0-10.0)
[2020-06-11 10:01] LABS: POTASSIUM 5.2 mmol/L (3.5-5.1)
[2020-06-11 10:18] LABS: PHOSPHOROUS 4.5 mg/dL (2.5-4.9)
[2020-06-11 10:19] LABS: BILIRUBIN,TOTAL 0.6 mg/dL (0.2-1); TOT PROT 6.1 g/dl (6.4-8.2)
[2020-06-11 10:21] LABS: ALBUMIN 2.2 g/dl (3.4-5.0); MAGNESIUM 2.6 mg/dL (1.8-2.4)
[2020-06-11 10:22] LABS: CALCIUM 8.5 mg/dL (8.5-10.1)
[2020-06-11 10:23] LABS: BLOOD UREA NITROGEN 27.3 mg/dL (7-18)
[2020-06-11] MEDS: FAMOTIDINE 20 MG/50 ML IVPB 20 MG/50 ML MG IVPB SCH ×2 (10:25→21:47)
[2020-06-11] MEDS: CHOLECALCIFEROL (VIT D3) 1,000 UNIT (25 MCG) TABLET PO SCH (10:25)
[2020-06-11] MEDS: DEXAMETHASONE SOD PHOSPHATE 4 MG/1 ML VIAL IVPUSH SCH (10:26)
[2020-06-11] MEDS: ASCORBIC ACID 500 MG TABLET (FP) PO SCH ×2 (10:26→21:47)
[2020-06-11] MEDS: ZINC SULFATE 220 MG CAPSULE (FP) PO SCH (10:26)
[2020-06-11] MEDS: ENOXAPARIN NA (PORCINE) 100 MG/1 ML DISP.SYRIN SQ SCH ×2 (10:28→21:46)
[2020-06-11 10:29] LABS: CREATININE 0.8 mg/dL (0.55-1.3)
[2020-06-11] MEDS ORDERED: SODIUM ZIRCONIUM CYCLOSILICATE (LOKELMA) 5 GM PACKET PO ONE (10:45)
[2020-06-11 10:46] LABS: ERYTHROCYTE SEDIMENTATION RATE 73 mm/hr (0-20)
[2020-06-11] MEDS ORDERED: PT OWN MED DRAWER 7, Y5N ONE ×2 (15:03→19:51)
[2020-06-12] MEDS: INSULIN SLIDING SCALE (NOVOLOG) 1 VIAL SQ SCH ×4 (06:09→21:42)
[2020-06-12] MEDS: INSULIN (LEVEMIR) 100 UNITS/ML UNITS SQ SCH (06:09)
[2020-06-12] MEDS ORDERED: PT OWN MED DRAWER 7, Y5N ONE (06:48)
[2020-06-12] MEDS: guaiFENesin/D-M SUGAR-FREE/ACLHOL-FREE 118 ML BOTTLE PO PRN ×2 (06:49→17:25)
[2020-06-12 07:45] LABS: BASO % 0.2 % (0-2.0); HEMATOCRIT 46.1 % (35.4-49); HEMOGLOBIN 15.2 GM/dL (11.7-16.9); LYMPH % 7.5 % (8-40); MCH 30.8 pg (25.7-33.7); MCHC 33.1 g/dl (32.0-35.9); MEAN CELL VOLUME 93.1 fl (80-96); MEAN PLT VOLUME 8.3 fl (7.5-11.1); MONO % 3.3 % (3.8-10.2); PLATELET COUNT 570 K/MM3 (134-434); RBC 4.95 M/mm3 (4.00-5.60); RDW 13.8 % (11.9-15.9)
[2020-06-12 08:05] LABS: POTASSIUM 4.9 mmol/L (3.5-5.1)
[2020-06-12 08:16] LABS: ALBUMIN 2.2 g/dl (3.4-5.0); CALCIUM 8.3 mg/dL (8.5-10.1)
[2020-06-12 08:17] LABS: BLOOD UREA NITROGEN 25.6 mg/dL (7-18); MAGNESIUM 2.3 mg/dL (1.8-2.4)
[2020-06-12 08:19] LABS: CREATININE 0.9 mg/dL (0.55-1.3)
[2020-06-12 08:20] LABS: PHOSPHOROUS 4.3 mg/dL (2.5-4.9)
[2020-06-12 08:21] LABS: BILIRUBIN,TOTAL 0.9 mg/dL (0.2-1); TOT PROT 5.9 g/dl (6.4-8.2)
[2020-06-12 09:06] LABS: ERYTHROCYTE SEDIMENTATION RATE 71 mm/hr (0-20)
[2020-06-12] MEDS: DEXAMETHASONE SOD PHOSPHATE 4 MG/1 ML VIAL IVPUSH SCH (09:09)
[2020-06-12] MEDS: ASCORBIC ACID 500 MG TABLET (FP) PO SCH ×2 (09:11→21:27)
[2020-06-12] MEDS: FAMOTIDINE 20 MG/50 ML IVPB 20 MG/50 ML MG IVPB SCH ×2 (09:11→21:28)
[2020-06-12] MEDS: CHOLECALCIFEROL (VIT D3) 1,000 UNIT (25 MCG) TABLET PO SCH (09:11)
[2020-06-12] MEDS: ZINC SULFATE 220 MG CAPSULE (FP) PO SCH (09:11)
[2020-06-12] MEDS: ENOXAPARIN NA (PORCINE) 100 MG/1 ML DISP.SYRIN SQ SCH ×2 (09:11→21:27)
[2020-06-13] MEDS: INSULIN (LEVEMIR) 100 UNITS/ML UNITS SQ SCH (07:35)
[2020-06-13] MEDS: INSULIN SLIDING SCALE (NOVOLOG) 1 VIAL SQ SCH ×4 (07:36→22:35)
[2020-06-13 07:46] LABS: BASO % 0.2 % (0-2.0); EOS % 1.2 % (0-4.5); HEMATOCRIT 45.1 % (35.4-49); HEMOGLOBIN 15.2 GM/dL (11.7-16.9); LYMPH % 6.9 % (8-40); MCH 31.1 pg (25.7-33.7); MCHC 33.7 g/dl (32.0-35.9); MEAN CELL VOLUME 92.2 fl (80-96); MEAN PLT VOLUME 8.3 fl (7.5-11.1); MONO % 4.7 % (3.8-10.2); PLATELET COUNT 523 K/MM3 (134-434); RBC 4.89 M/mm3 (4.00-5.60); RDW 13.7 % (11.9-15.9); WHITE BLOOD COUNT 13.6 K/mm3 (4.0-10.0)
[2020-06-13 07:52] LABS: POTASSIUM 4.6 mmol/L (3.5-5.1)
[2020-06-13 08:29] LABS: BLOOD UREA NITROGEN 22.4 mg/dL (7-18); CALCIUM 8.7 mg/dL (8.5-10.1); MAGNESIUM 2.3 mg/dL (1.8-2.4)
[2020-06-13 08:30] LABS: ALBUMIN 2.4 g/dl (3.4-5.0)
[2020-06-13 08:31] LABS: CREATININE 0.8 mg/dL (0.55-1.3)
[2020-06-13 08:33] LABS: BILIRUBIN,TOTAL 0.6 mg/dL (0.2-1); TOT PROT 5.8 g/dl (6.4-8.2)
[2020-06-13] MEDS: ZINC SULFATE 220 MG CAPSULE (FP) PO SCH (09:40)
[2020-06-13] MEDS: ENOXAPARIN NA (PORCINE) 100 MG/1 ML DISP.SYRIN SQ SCH ×2 (09:40→22:35)
[2020-06-13] MEDS: DEXAMETHASONE SOD PHOSPHATE 4 MG/1 ML VIAL IVPUSH SCH (09:40)
[2020-06-13] MEDS: ASCORBIC ACID 500 MG TABLET (FP) PO SCH ×2 (09:41→22:36)
[2020-06-13] MEDS: CHOLECALCIFEROL (VIT D3) 1,000 UNIT (25 MCG) TABLET PO SCH (09:41)
[2020-06-13] MEDS: FAMOTIDINE 20 MG/50 ML IVPB 20 MG/50 ML MG IVPB SCH ×2 (09:41→22:36)
[2020-06-13 13:18] LABS: ERYTHROCYTE SEDIMENTATION RATE 55 mm/hr (0-20)
[2020-06-13 15:07] LABS: ANISOCYTOSIS 0; MACROCYTOSIS 0; PLATELET ESTIMATE INCREASED
[2020-06-14] MEDS: INSULIN SLIDING SCALE (NOVOLOG) 1 VIAL SQ SCH ×4 (06:51→22:08)
[2020-06-14] MEDS: INSULIN (LEVEMIR) 100 UNITS/ML UNITS SQ SCH (06:51)
[2020-06-14 07:12] LABS: BASO % 0.6 % (0-2.0); EOS % 0.8 % (0-4.5); HEMATOCRIT 46.2 % (35.4-49); HEMOGLOBIN 15.5 GM/dL (11.7-16.9); LYMPH % 6.6 % (8-40); MCH 30.7 pg (25.7-33.7); MCHC 33.5 g/dl (32.0-35.9); MEAN CELL VOLUME 91.6 fl (80-96); MEAN PLT VOLUME 8.2 fl (7.5-11.1); MONO % 5.1 % (3.8-10.2); NEUT % 86.9 % (42.8-82.8); PLATELET COUNT 550 K/MM3 (134-434); RBC 5.04 M/mm3 (4.00-5.60); RDW 13.6 % (11.9-15.9); WHITE BLOOD COUNT 15.8 K/mm3 (4.0-10.0)
[2020-06-14 07:27] LABS: POTASSIUM 4.9 mmol/L (3.5-5.1)
[2020-06-14 07:32] LABS: CALCIUM 8.6 mg/dL (8.5-10.1)
[2020-06-14 07:33] LABS: ALBUMIN 2.6 g/dl (3.4-5.0); BLOOD UREA NITROGEN 22.4 mg/dL (7-18); MAGNESIUM 2.1 mg/dL (1.8-2.4)
[2020-06-14 07:35] LABS: CREATININE 0.9 mg/dL (0.55-1.3)
[2020-06-14 07:37] LABS: BILIRUBIN,TOTAL 0.6 mg/dL (0.2-1); TOT PROT 6.1 g/dl (6.4-8.2)
[2020-06-14] MEDS ORDERED: PT OWN MED DRAWER 7, Y5N ONE ×3 (10:15→21:39)
[2020-06-14] MEDS: DEXAMETHASONE SOD PHOSPHATE 4 MG/1 ML VIAL IVPUSH SCH (10:16)
[2020-06-14] MEDS: FAMOTIDINE 20 MG/50 ML IVPB 20 MG/50 ML MG IVPB SCH ×2 (10:16→22:09)
[2020-06-14] MEDS: ENOXAPARIN NA (PORCINE) 100 MG/1 ML DISP.SYRIN SQ SCH ×2 (10:16→22:08)
[2020-06-14] MEDS: CHOLECALCIFEROL (VIT D3) 1,000 UNIT (25 MCG) TABLET PO SCH (10:16)
[2020-06-14] MEDS: ZINC SULFATE 220 MG CAPSULE (FP) PO SCH (10:16)
[2020-06-14] MEDS: ASCORBIC ACID 500 MG TABLET (FP) PO SCH ×2 (10:16→22:09)
[2020-06-14] MEDS: guaiFENesin/D-M SUGAR-FREE/ACLHOL-FREE 118 ML BOTTLE PO PRN (10:16)
[2020-06-14 11:00] LABS: ERYTHROCYTE SEDIMENTATION RATE 48 mm/hr (0-20)
[2020-06-15] MEDS: INSULIN SLIDING SCALE (NOVOLOG) 1 VIAL SQ SCH ×4 (06:32→21:56)
[2020-06-15] MEDS: INSULIN (LEVEMIR) 100 UNITS/ML UNITS SQ SCH (06:33)
[2020-06-15 08:27] LABS: BASO % 0.8 % (0-2.0); HEMATOCRIT 47.3 % (35.4-49); HEMOGLOBIN 15.1 GM/dL (11.7-16.9); LYMPH % 7.4 % (8-40); MCH 29.5 pg (25.7-33.7); MCHC 31.9 g/dl (32.0-35.9); MEAN CELL VOLUME 92.3 fl (80-96); MONO % 6.2 % (3.8-10.2); NEUT % 84.6 % (42.8-82.8); PLATELET COUNT 504 K/MM3 (134-434); RBC 5.13 M/mm3 (4.00-5.60); RDW 13.8 % (11.9-15.9); WHITE BLOOD COUNT 17.8 K/mm3 (4.0-10.0)
[2020-06-15 09:00] LABS: POTASSIUM 4.8 mmol/L (3.5-5.1)
[2020-06-15 09:08] LABS: ALBUMIN 2.7 g/dl (3.4-5.0); CREATININE 0.9 mg/dL (0.55-1.3)
[2020-06-15 09:09] LABS: BILIRUBIN,TOTAL 0.7 mg/dL (0.2-1); TOT PROT 5.8 g/dl (6.4-8.2)
[2020-06-15 09:10] LABS: BLOOD UREA NITROGEN 24.5 mg/dL (7-18)
[2020-06-15 09:11] LABS: CALCIUM 8.9 mg/dL (8.5-10.1); MAGNESIUM 2.2 mg/dL (1.8-2.4)
[2020-06-15] MEDS: DEXAMETHASONE SOD PHOSPHATE 4 MG/1 ML VIAL IVPUSH SCH (09:37)
[2020-06-15] MEDS: ASCORBIC ACID 500 MG TABLET (FP) PO SCH ×2 (09:37→21:57)
[2020-06-15] MEDS: ZINC SULFATE 220 MG CAPSULE (FP) PO SCH (09:37)
[2020-06-15] MEDS: ENOXAPARIN NA (PORCINE) 100 MG/1 ML DISP.SYRIN SQ SCH ×2 (09:37→21:56)
[2020-06-15] MEDS: CHOLECALCIFEROL (VIT D3) 1,000 UNIT (25 MCG) TABLET PO SCH (09:37)
[2020-06-15] MEDS: FAMOTIDINE 20 MG/50 ML IVPB 20 MG/50 ML MG IVPB SCH ×2 (09:37→21:57)
[2020-06-15 11:37] VITALS: BMI 28.8
[2020-06-15 12:14] LABS: ANISOCYTOSIS 0; MACROCYTOSIS 0; PLATELET ESTIMATE NORMAL
[2020-06-16] MEDS: INSULIN SLIDING SCALE (NOVOLOG) 1 VIAL SQ SCH ×4 (06:40→22:12)
[2020-06-16] MEDS: INSULIN (LEVEMIR) 100 UNITS/ML UNITS SQ SCH ×2 (06:40→22:11)
[2020-06-16 07:06] LABS: BASO % 0.3 % (0-2.0); EOS % 0.9 % (0-4.5); HEMATOCRIT 46.2 % (35.4-49); HEMOGLOBIN 15.2 GM/dL (11.7-16.9); LYMPH % 9.1 % (8-40); MCH 30.2 pg (25.7-33.7); MCHC 32.9 g/dl (32.0-35.9); MEAN PLT VOLUME 8.5 fl (7.5-11.1); MONO % 7.5 % (3.8-10.2); NEUT % 82.2 % (42.8-82.8); PLATELET COUNT 426 K/MM3 (134-434); RBC 5.03 M/mm3 (4.00-5.60); RDW 13.4 % (11.9-15.9); WHITE BLOOD COUNT 16.5 K/mm3 (4.0-10.0)
[2020-06-16 07:32] LABS: POTASSIUM 4.8 mmol/L (3.5-5.1)
[2020-06-16 07:34] LABS: ALBUMIN 2.6 g/dl (3.4-5.0); BLOOD UREA NITROGEN 25.4 mg/dL (7-18); CALCIUM 8.7 mg/dL (8.5-10.1)
[2020-06-16 07:37] LABS: CREATININE 0.8 mg/dL (0.55-1.3)
[2020-06-16 07:39] LABS: BILIRUBIN,TOTAL 0.8 mg/dL (0.2-1); TOT PROT 5.7 g/dl (6.4-8.2)
[2020-06-16 08:56] LABS: ANISOCYTOSIS 0; MACROCYTOSIS 0; PLATELET ESTIMATE NORMAL
[2020-06-16] MEDS: FAMOTIDINE 20 MG/50 ML IVPB 20 MG/50 ML MG IVPB SCH ×2 (09:38→22:12)
[2020-06-16] MEDS: ENOXAPARIN NA (PORCINE) 100 MG/1 ML DISP.SYRIN SQ SCH ×2 (09:38→22:12)
[2020-06-16] MEDS: CHOLECALCIFEROL (VIT D3) 1,000 UNIT (25 MCG) TABLET PO SCH (09:39)
[2020-06-16] MEDS: DEXAMETHASONE SOD PHOSPHATE 4 MG/1 ML VIAL IVPUSH SCH (09:39)
[2020-06-16] MEDS: ZINC SULFATE 220 MG CAPSULE (FP) PO SCH (09:41)
[2020-06-16] MEDS: ASCORBIC ACID 500 MG TABLET (FP) PO SCH ×2 (09:42→22:12)
[2020-06-17] MEDS: INSULIN SLIDING SCALE (NOVOLOG) 1 VIAL SQ SCH ×4 (06:19→22:28)
[2020-06-17] MEDS: INSULIN (LEVEMIR) 100 UNITS/ML UNITS SQ SCH ×2 (06:20→22:05)
[2020-06-17 07:45] LABS: BASO % 0.3 % (0-2.0); EOS % 0.8 % (0-4.5); HEMATOCRIT 46.7 % (35.4-49); HEMOGLOBIN 15.5 GM/dL (11.7-16.9); LYMPH % 9.8 % (8-40); MCH 30.6 pg (25.7-33.7); MCHC 33.1 g/dl (32.0-35.9); MEAN CELL VOLUME 92.4 fl (80-96); MEAN PLT VOLUME 8.6 fl (7.5-11.1); MONO % 7.8 % (3.8-10.2); NEUT % 81.3 % (42.8-82.8); PLATELET COUNT 404 K/MM3 (134-434); RBC 5.05 M/mm3 (4.00-5.60); RDW 13.5 % (11.9-15.9); WHITE BLOOD COUNT 15.9 K/mm3 (4.0-10.0)
[2020-06-17 08:23] LABS: CHLORIDE 99 mmol/L (98-107); POTASSIUM 4.2 mmol/L (3.5-5.1); SODIUM 135 mmol/L (136-145)
[2020-06-17 08:25] LABS: ALBUMIN 2.7 g/dl (3.4-5.0); CALCIUM 8.6 mg/dL (8.5-10.1)
[2020-06-17 08:26] LABS: ANION GAP 6 MMOL/L (8-16); CO2 30 mmol/L (21-32); GLUCOSE,RANDOM 149 mg/dL (74-106); MAGNESIUM 2.2 mg/dL (1.8-2.4)
[2020-06-17 08:29] LABS: CREATININE 0.9 mg/dL (0.55-1.3); SGOT/AST 29 U/L (15-37); SGPT/ALT 117 U/L (13-61)
[2020-06-17 08:30] LABS: BILIRUBIN,TOTAL 0.8 mg/dL (0.2-1); PHOSPHOROUS 4.5 mg/dL (2.5-4.9); TOT PROT 5.8 g/dl (6.4-8.2)
[2020-06-17 08:32] LABS: ALK PHOS 96 U/L (45-117)
[2020-06-17 08:44] LABS: LDH 387 U/L (87-246)
[2020-06-17 09:27] LABS: ANISOCYTOSIS 0; MACROCYTOSIS 0; PLATELET ESTIMATE NORMAL
[2020-06-17] MEDS: ENOXAPARIN NA (PORCINE) 100 MG/1 ML DISP.SYRIN SQ SCH ×2 (09:58→22:05)
[2020-06-17] MEDS: FAMOTIDINE 20 MG/50 ML IVPB 20 MG/50 ML MG IVPB SCH ×2 (09:59→22:06)
[2020-06-17] MEDS: DEXAMETHASONE SOD PHOSPHATE 4 MG/1 ML VIAL IVPUSH SCH (10:00)
[2020-06-17] MEDS: ZINC SULFATE 220 MG CAPSULE (FP) PO SCH (10:00)
[2020-06-17] MEDS: CHOLECALCIFEROL (VIT D3) 1,000 UNIT (25 MCG) TABLET PO SCH (10:00)
[2020-06-17] MEDS: ASCORBIC ACID 500 MG TABLET (FP) PO SCH ×2 (10:00→22:06)
[2020-06-17] MEDS: guaiFENesin/D-M SUGAR-FREE/ACLHOL-FREE 118 ML BOTTLE PO PRN (22:08)
[2020-06-18] MEDS: INSULIN (LEVEMIR) 100 UNITS/ML UNITS SQ SCH ×2 (06:31→22:09)
[2020-06-18] MEDS: INSULIN SLIDING SCALE (NOVOLOG) 1 VIAL SQ SCH ×4 (06:31→22:13)
[2020-06-18 07:20] LABS: BASO % 0.5 % (0-2.0); EOS % 0.9 % (0-4.5); HEMATOCRIT 44.6 % (35.4-49); HEMOGLOBIN 14.9 GM/dL (11.7-16.9); LYMPH % 12.5 % (8-40); MCH 30.5 pg (25.7-33.7); MCHC 33.4 g/dl (32.0-35.9); MEAN CELL VOLUME 91.5 fl (80-96); MEAN PLT VOLUME 8.4 fl (7.5-11.1); MONO % 7.6 % (3.8-10.2); NEUT % 78.5 % (42.8-82.8); PLATELET COUNT 335 K/MM3 (134-434); RBC 4.87 M/mm3 (4.00-5.60); RDW 13.8 % (11.9-15.9); WHITE BLOOD COUNT 15.1 K/mm3 (4.0-10.0)
[2020-06-18 07:36] LABS: CHLORIDE 100 mmol/L (98-107); POTASSIUM 4.3 mmol/L (3.5-5.1); SODIUM 135 mmol/L (136-145)
[2020-06-18 07:40] LABS: BLOOD UREA NITROGEN 23.6 mg/dL (7-18)
[2020-06-18 07:41] LABS: CALCIUM 8.3 mg/dL (8.5-10.1); GLUCOSE,RANDOM 154 mg/dL (74-106)
[2020-06-18 07:42] LABS: ANION GAP 6 MMOL/L (8-16); CO2 28 mmol/L (21-32)
[2020-06-18 07:44] LABS: ALBUMIN 2.6 g/dl (3.4-5.0); SGOT/AST 25 U/L (15-37); SGPT/ALT 108 U/L (13-61)
[2020-06-18 07:45] LABS: CREATININE 0.8 mg/dL (0.55-1.3)
[2020-06-18 07:46] LABS: BILIRUBIN,TOTAL 0.7 mg/dL (0.2-1); TOT PROT 5.5 g/dl (6.4-8.2)
[2020-06-18 07:47] LABS: ALK PHOS 83 U/L (45-117); PHOSPHOROUS 3.9 mg/dL (2.5-4.9)
[2020-06-18 08:07] LABS: LDH 343 U/L (87-246)
[2020-06-18] MEDS: ENOXAPARIN NA (PORCINE) 100 MG/1 ML DISP.SYRIN SQ SCH ×2 (09:20→22:09)
[2020-06-18] MEDS: FAMOTIDINE 20 MG/50 ML IVPB 20 MG/50 ML MG IVPB SCH ×2 (09:20→22:08)
[2020-06-18] MEDS: DEXAMETHASONE SOD PHOSPHATE 4 MG/1 ML VIAL IVPUSH SCH (09:20)
[2020-06-18] MEDS: CHOLECALCIFEROL (VIT D3) 1,000 UNIT (25 MCG) TABLET PO SCH (09:21)
[2020-06-18] MEDS: ZINC SULFATE 220 MG CAPSULE (FP) PO SCH (09:21)
[2020-06-18] MEDS: ASCORBIC ACID 500 MG TABLET (FP) PO SCH ×2 (09:21→22:09)
[2020-06-18] MEDS: guaiFENesin/D-M SUGAR-FREE/ACLHOL-FREE 118 ML BOTTLE PO PRN ×3 (11:04→22:09)
[2020-06-18] MEDS ORDERED: PT OWN MED DRAWER 7, Y5N ONE ×3 (11:04→22:06)
[2020-06-18] MEDS ORDERED: ENOXAPARIN NA (PORCINE) 100 MG/1 ML DISP.SYRIN SQ SCH (13:15)
[2020-06-19] MEDS: INSULIN (LEVEMIR) 100 UNITS/ML UNITS SQ SCH ×2 (06:21→21:35)
[2020-06-19] MEDS: INSULIN SLIDING SCALE (NOVOLOG) 1 VIAL SQ SCH ×4 (06:21→21:37)
[2020-06-19 07:20] LABS: BASO % 0.4 % (0-2.0); EOS % 0.7 % (0-4.5); HEMATOCRIT 45.2 % (35.4-49); HEMOGLOBIN 15.3 GM/dL (11.7-16.9); LYMPH % 13.6 % (8-40); MCH 30.8 pg (25.7-33.7); MCHC 33.8 g/dl (32.0-35.9); MEAN CELL VOLUME 91.1 fl (80-96); MEAN PLT VOLUME 8.6 fl (7.5-11.1); NEUT % 77.3 % (42.8-82.8); PLATELET COUNT 345 K/MM3 (134-434); RBC 4.96 M/mm3 (4.00-5.60); RDW 13.4 % (11.9-15.9); WHITE BLOOD COUNT 15.4 K/mm3 (4.0-10.0)
[2020-06-19 07:41] LABS: CHLORIDE 98 mmol/L (98-107); POTASSIUM 4.4 mmol/L (3.5-5.1); SODIUM 133 mmol/L (136-145)
[2020-06-19 07:58] LABS: ALBUMIN 2.8 g/dl (3.4-5.0); ANION GAP 7 MMOL/L (8-16); BLOOD UREA NITROGEN 23.3 mg/dL (7-18); CALCIUM 8.5 mg/dL (8.5-10.1); CO2 29 mmol/L (21-32); GLUCOSE,RANDOM 182 mg/dL (74-106); MAGNESIUM 2.2 mg/dL (1.8-2.4); SGPT/ALT 94 U/L (13-61)
[2020-06-19 07:59] LABS: BILIRUBIN,TOTAL 0.7 mg/dL (0.2-1); TOT PROT 5.8 g/dl (6.4-8.2)
[2020-06-19 08:00] LABS: ALK PHOS 84 U/L (45-117)
[2020-06-19 08:01] LABS: CREATININE 0.9 mg/dL (0.55-1.3); PHOSPHOROUS 3.7 mg/dL (2.5-4.9); SGOT/AST 21 U/L (15-37)
[2020-06-19 08:10] LABS: LDH 354 U/L (87-246)
[2020-06-19] MEDS ORDERED: PT OWN MED DRAWER 7, Y5N ONE ×2 (08:18→21:32)
[2020-06-19] MEDS: guaiFENesin/D-M SUGAR-FREE/ACLHOL-FREE 118 ML BOTTLE PO PRN ×2 (09:49→22:26)
[2020-06-19] MEDS: ENOXAPARIN NA (PORCINE) 100 MG/1 ML DISP.SYRIN SQ SCH ×2 (09:50→21:35)
[2020-06-19] MEDS: FAMOTIDINE 20 MG/50 ML IVPB 20 MG/50 ML MG IVPB SCH (09:51)
[2020-06-19] MEDS: ASCORBIC ACID 500 MG TABLET (FP) PO SCH ×2 (09:52→21:36)
[2020-06-19] MEDS: ZINC SULFATE 220 MG CAPSULE (FP) PO SCH (09:52)
[2020-06-19] MEDS: DEXAMETHASONE SOD PHOSPHATE 4 MG/1 ML VIAL IVPUSH SCH (09:52)
[2020-06-19] MEDS: CHOLECALCIFEROL (VIT D3) 1,000 UNIT (25 MCG) TABLET PO SCH (09:52)
[2020-06-19] MEDS: FAMOTIDINE 20 MG TABLET PO SCH (21:36)
[2020-06-19] MEDS ORDERED: FAMOTIDINE 20 MG TABLET PO SCH (22:00)
[2020-06-20] MEDS: INSULIN SLIDING SCALE (NOVOLOG) 1 VIAL SQ SCH ×4 (06:15→22:13)
[2020-06-20] MEDS: INSULIN (LEVEMIR) 100 UNITS/ML UNITS SQ SCH ×2 (06:16→22:13)
[2020-06-20 07:35] LABS: BASO % 0.7 % (0-2.0); EOS % 0.7 % (0-4.5); HEMATOCRIT 43.1 % (35.4-49); HEMOGLOBIN 14.4 GM/dL (11.7-16.9); LYMPH % 14.5 % (8-40); MCH 30.8 pg (25.7-33.7); MCHC 33.4 g/dl (32.0-35.9); MEAN CELL VOLUME 92.1 fl (80-96); MEAN PLT VOLUME 8.6 fl (7.5-11.1); MONO % 7.7 % (3.8-10.2); NEUT % 76.4 % (42.8-82.8); PLATELET COUNT 288 K/MM3 (134-434); RBC 4.68 M/mm3 (4.00-5.60); RDW 13.8 % (11.9-15.9); WHITE BLOOD COUNT 13.3 K/mm3 (4.0-10.0)
[2020-06-20 07:58] LABS: CHLORIDE 100 mmol/L (98-107); POTASSIUM 4.6 mmol/L (3.5-5.1); SODIUM 136 mmol/L (136-145)
[2020-06-20 08:05] LABS: ALBUMIN 2.7 g/dl (3.4-5.0)
[2020-06-20 08:06] LABS: ANION GAP 5 MMOL/L (8-16); BLOOD UREA NITROGEN 29.5 mg/dL (7-18); CALCIUM 8.4 mg/dL (8.5-10.1); CO2 31 mmol/L (21-32)
[2020-06-20 08:07] LABS: GLUCOSE,RANDOM 147 mg/dL (74-106); MAGNESIUM 2.2 mg/dL (1.8-2.4)
[2020-06-20 08:09] LABS: BILIRUBIN,TOTAL 0.7 mg/dL (0.2-1); CREATININE 0.8 mg/dL (0.55-1.3); PHOSPHOROUS 4.1 mg/dL (2.5-4.9); SGOT/AST 17 U/L (15-37); SGPT/ALT 82 U/L (13-61)
[2020-06-20 08:10] LABS: TOT PROT 5.4 g/dl (6.4-8.2)
[2020-06-20 08:11] LABS: ALK PHOS 68 U/L (45-117)
[2020-06-20 08:14] LABS: LDH 283 U/L (87-246)
[2020-06-20] MEDS: ASCORBIC ACID 500 MG TABLET (FP) PO SCH ×2 (09:37→22:15)
[2020-06-20] MEDS: ZINC SULFATE 220 MG CAPSULE (FP) PO SCH (09:38)
[2020-06-20] MEDS: DEXAMETHASONE SOD PHOSPHATE 4 MG/1 ML VIAL IVPUSH SCH (09:38)
[2020-06-20] MEDS: FAMOTIDINE 20 MG TABLET PO SCH ×2 (09:38→22:15)
[2020-06-20] MEDS: CHOLECALCIFEROL (VIT D3) 1,000 UNIT (25 MCG) TABLET PO SCH (09:38)
[2020-06-20] MEDS: ENOXAPARIN NA (PORCINE) 100 MG/1 ML DISP.SYRIN SQ SCH ×2 (09:38→22:14)
[2020-06-20] MEDS: guaiFENesin/D-M SUGAR-FREE/ACLHOL-FREE 118 ML BOTTLE PO PRN ×2 (09:40→22:41)
[2020-06-20] MEDS ORDERED: PT OWN MED DRAWER 7, Y5N ONE (22:16)
[2020-06-21] MEDS: INSULIN SLIDING SCALE (NOVOLOG) 1 VIAL SQ SCH ×4 (06:31→21:07)
[2020-06-21] MEDS ORDERED: INSULIN (LEVEMIR) 100 UNITS/ML UNITS SQ SCH (07:00)
[2020-06-21] MEDS ORDERED: PT OWN MED DRAWER 7, Y5N ONE ×2 (07:01→08:51)
[2020-06-21 08:36] LABS: BASO % 0.4 % (0-2.0); EOS % 0.6 % (0-4.5); HEMATOCRIT 44.7 % (35.4-49); HEMOGLOBIN 14.9 GM/dL (11.7-16.9); LYMPH % 15.7 % (8-40); MCH 30.6 pg (25.7-33.7); MCHC 33.4 g/dl (32.0-35.9); MEAN CELL VOLUME 91.5 fl (80-96); MEAN PLT VOLUME 8.8 fl (7.5-11.1); NEUT % 75.3 % (42.8-82.8); PLATELET COUNT 269 K/MM3 (134-434); RBC 4.88 M/mm3 (4.00-5.60); WHITE BLOOD COUNT 13.2 K/mm3 (4.0-10.0)
[2020-06-21 09:02] LABS: CHLORIDE 99 mmol/L (98-107); POTASSIUM 4.4 mmol/L (3.5-5.1); SODIUM 135 mmol/L (136-145)
[2020-06-21 09:08] LABS: CALCIUM 8.8 mg/dL (8.5-10.1)
[2020-06-21 09:09] LABS: ANION GAP 6 MMOL/L (8-16); BLOOD UREA NITROGEN 24.2 mg/dL (7-18); CO2 30 mmol/L (21-32); GLUCOSE,RANDOM 142 mg/dL (74-106); MAGNESIUM 2.3 mg/dL (1.8-2.4)
[2020-06-21 09:10] LABS: SGPT/ALT 77 U/L (13-61)
[2020-06-21 09:11] LABS: SGOT/AST 15 U/L (15-37)
[2020-06-21 09:12] LABS: BILIRUBIN,TOTAL 0.8 mg/dL (0.2-1); CREATININE 0.8 mg/dL (0.55-1.3); PHOSPHOROUS 4.5 mg/dL (2.5-4.9); TOT PROT 5.9 g/dl (6.4-8.2)
[2020-06-21 09:13] LABS: ALK PHOS 66 U/L (45-117)
[2020-06-21 09:19] LABS: LDH 281 U/L (87-246)
[2020-06-21] MEDS: ASCORBIC ACID 500 MG TABLET (FP) PO SCH ×2 (09:32→21:07)
[2020-06-21] MEDS: CHOLECALCIFEROL (VIT D3) 1,000 UNIT (25 MCG) TABLET PO SCH (09:32)
[2020-06-21] MEDS: FAMOTIDINE 20 MG TABLET PO SCH ×2 (09:32→21:07)
[2020-06-21] MEDS: ZINC SULFATE 220 MG CAPSULE (FP) PO SCH (09:32)
[2020-06-21] MEDS: guaiFENesin/D-M SUGAR-FREE/ACLHOL-FREE 118 ML BOTTLE PO PRN (09:34)
[2020-06-21] MEDS: ENOXAPARIN NA (PORCINE) 100 MG/1 ML DISP.SYRIN SQ SCH ×2 (09:34→21:08)
[2020-06-21] MEDS: DEXAMETHASONE SOD PHOSPHATE 4 MG/1 ML VIAL IVPUSH SCH (09:34)
[2020-06-21] MEDS: INSULIN (LEVEMIR) 100 UNITS/ML UNITS SQ SCH (21:08)
[2020-06-22] MEDS: INSULIN SLIDING SCALE (NOVOLOG) 1 VIAL SQ SCH ×4 (06:18→21:09)
[2020-06-22] MEDS ORDERED: INSULIN (LEVEMIR) 100 UNITS/ML UNITS SQ SCH (07:00)
[2020-06-22 07:08] LABS: BASO % 0.3 % (0-2.0); EOS % 0.2 % (0-4.5); HEMATOCRIT 45.5 % (35.4-49); HEMOGLOBIN 14.9 GM/dL (11.7-16.9); LYMPH % 14.7 % (8-40); MCH 30.5 pg (25.7-33.7); MCHC 32.8 g/dl (32.0-35.9); MEAN PLT VOLUME 9.1 fl (7.5-11.1); MONO % 7.8 % (3.8-10.2); PLATELET COUNT 242 K/MM3 (134-434); RBC 4.89 M/mm3 (4.00-5.60); RDW 13.6 % (11.9-15.9); WHITE BLOOD COUNT 12.3 K/mm3 (4.0-10.0)
[2020-06-22 07:32] LABS: CHLORIDE 100 mmol/L (98-107); POTASSIUM 4.7 mmol/L (3.5-5.1); SODIUM 136 mmol/L (136-145)
[2020-06-22 07:34] LABS: CALCIUM 8.7 mg/dL (8.5-10.1)
[2020-06-22 07:35] LABS: ANION GAP 4 MMOL/L (8-16); BLOOD UREA NITROGEN 24.7 mg/dL (7-18); CO2 33 mmol/L (21-32); GLUCOSE,RANDOM 132 mg/dL (74-106); MAGNESIUM 2.2 mg/dL (1.8-2.4)
[2020-06-22 07:38] LABS: CREATININE 0.7 mg/dL (0.55-1.3); PHOSPHOROUS 4.6 mg/dL (2.5-4.9); SGOT/AST 15 U/L (15-37); SGPT/ALT 77 U/L (13-61)
[2020-06-22 07:39] LABS: BILIRUBIN,TOTAL 0.9 mg/dL (0.2-1); TOT PROT 5.8 g/dl (6.4-8.2)
[2020-06-22 07:41] LABS: ALK PHOS 66 U/L (45-117)
[2020-06-22 07:58] LABS: LDH 257 U/L (87-246)
[2020-06-22] MEDS: ENOXAPARIN NA (PORCINE) 100 MG/1 ML DISP.SYRIN SQ SCH ×2 (09:56→21:07)
[2020-06-22] MEDS: ZINC SULFATE 220 MG CAPSULE (FP) PO SCH (09:56)
[2020-06-22] MEDS: ASCORBIC ACID 500 MG TABLET (FP) PO SCH ×2 (09:56→21:07)
[2020-06-22] MEDS: FAMOTIDINE 20 MG TABLET PO SCH ×2 (09:56→21:07)
[2020-06-22] MEDS: CHOLECALCIFEROL (VIT D3) 1,000 UNIT (25 MCG) TABLET PO SCH (09:57)
[2020-06-22] MEDS: DEXAMETHASONE SOD PHOSPHATE 4 MG/1 ML VIAL IVPUSH SCH (09:57)
[2020-06-22] MEDS ORDERED: PT OWN MED DRAWER 7, Y5N ONE ×5 (13:07→21:04)
[2020-06-22] MEDS: guaiFENesin/D-M SUGAR-FREE/ACLHOL-FREE 118 ML BOTTLE PO PRN ×2 (16:19→21:07)
[2020-06-22] MEDS: Insulin (LOG) Aspart 100 UNITS/ML VIAL SQ SCH (16:30)
[2020-06-22] MEDS: INSULIN (LEVEMIR) 100 UNITS/ML UNITS SQ SCH (21:08)
[2020-06-23] MEDS: INSULIN SLIDING SCALE (NOVOLOG) 1 VIAL SQ SCH ×4 (06:43→23:30)
[2020-06-23] MEDS: INSULIN (LEVEMIR) 100 UNITS/ML UNITS SQ SCH ×2 (06:44→23:30)
[2020-06-23] MEDS: Insulin (LOG) Aspart 100 UNITS/ML VIAL SQ SCH ×3 (06:45→16:42)
[2020-06-23] MEDS: ZINC SULFATE 220 MG CAPSULE (FP) PO SCH (09:29)
[2020-06-23] MEDS: FAMOTIDINE 20 MG TABLET PO SCH ×2 (09:29→22:39)
[2020-06-23] MEDS: CHOLECALCIFEROL (VIT D3) 1,000 UNIT (25 MCG) TABLET PO SCH (09:30)
[2020-06-23] MEDS: DEXAMETHASONE SOD PHOSPHATE 4 MG/1 ML VIAL IVPUSH SCH (09:30)
[2020-06-23] MEDS: guaiFENesin/D-M SUGAR-FREE/ACLHOL-FREE 118 ML BOTTLE PO PRN ×2 (09:30→23:31)
[2020-06-23] MEDS: ASCORBIC ACID 500 MG TABLET (FP) PO SCH ×2 (09:30→22:39)
[2020-06-23] MEDS: ENOXAPARIN NA (PORCINE) 100 MG/1 ML DISP.SYRIN SQ SCH ×2 (09:31→22:39)
[2020-06-23 10:18] LABS: BASO % 0.5 % (0-2.0); EOS % 0.7 % (0-4.5); HEMATOCRIT 44.3 % (35.4-49); HEMOGLOBIN 14.6 GM/dL (11.7-16.9); LYMPH % 18.2 % (8-40); MCH 30.6 pg (25.7-33.7); MCHC 32.9 g/dl (32.0-35.9); MEAN PLT VOLUME 9.2 fl (7.5-11.1); MONO % 7.6 % (3.8-10.2); PLATELET COUNT 210 K/MM3 (134-434); RBC 4.76 M/mm3 (4.00-5.60); RDW 13.7 % (11.9-15.9); WHITE BLOOD COUNT 12.3 K/mm3 (4.0-10.0)
[2020-06-23 10:39] LABS: CHLORIDE 99 mmol/L (98-107); POTASSIUM 4.2 mmol/L (3.5-5.1); SODIUM 136 mmol/L (136-145)
[2020-06-23 10:57] LABS: GLUCOSE,RANDOM 145 mg/dL (74-106)
[2020-06-23 10:58] LABS: ALBUMIN 2.9 g/dl (3.4-5.0)
[2020-06-23 10:59] LABS: BLOOD UREA NITROGEN 24.8 mg/dL (7-18)
[2020-06-23 11:01] LABS: CREATININE 0.7 mg/dL (0.55-1.3); PHOSPHOROUS 4.1 mg/dL (2.5-4.9); SGOT/AST 15 U/L (15-37); SGPT/ALT 77 U/L (13-61)
[2020-06-23 11:02] LABS: BILIRUBIN,TOTAL 1.5 mg/dL (0.2-1); LDH 246 U/L (87-246); TOT PROT 5.7 g/dl (6.4-8.2)
[2020-06-23 11:03] LABS: ALK PHOS 66 U/L (45-117); ANION GAP 8 MMOL/L (8-16); CO2 28 mmol/L (21-32); MAGNESIUM 2.3 mg/dL (1.8-2.4)
[2020-06-23 11:15] LABS: ANISOCYTOSIS 0; MACROCYTOSIS 0; PLATELET ESTIMATE NORMAL
[2020-06-24] MEDS: Insulin (LOG) Aspart 100 UNITS/ML VIAL SQ SCH ×3 (06:28→17:06)
[2020-06-24] MEDS: INSULIN (LEVEMIR) 100 UNITS/ML UNITS SQ SCH ×2 (06:28→21:56)
[2020-06-24] MEDS: INSULIN SLIDING SCALE (NOVOLOG) 1 VIAL SQ SCH ×4 (06:28→21:57)
[2020-06-24 08:12] LABS: BASO % 0.4 % (0-2.0); EOS % 0.5 % (0-4.5); HEMATOCRIT 45.9 % (35.4-49); HEMOGLOBIN 15.2 GM/dL (11.7-16.9); LYMPH % 17.7 % (8-40); MCH 30.7 pg (25.7-33.7); MCHC 33.1 g/dl (32.0-35.9); MEAN CELL VOLUME 92.6 fl (80-96); MEAN PLT VOLUME 9.1 fl (7.5-11.1); MONO % 7.1 % (3.8-10.2); NEUT % 74.3 % (42.8-82.8); PLATELET COUNT 212 K/MM3 (134-434); RBC 4.96 M/mm3 (4.00-5.60); RDW 13.6 % (11.9-15.9)
[2020-06-24 08:28] LABS: CHLORIDE 98 mmol/L (98-107); POTASSIUM 4.3 mmol/L (3.5-5.1); SODIUM 133 mmol/L (136-145)
[2020-06-24 08:37] LABS: ALBUMIN 3.2 g/dl (3.4-5.0); ANION GAP 6 MMOL/L (8-16); BLOOD UREA NITROGEN 24.6 mg/dL (7-18); CALCIUM 8.8 mg/dL (8.5-10.1); CO2 29 mmol/L (21-32); GLUCOSE,RANDOM 161 mg/dL (74-106); MAGNESIUM 2.2 mg/dL (1.8-2.4)
[2020-06-24 08:38] LABS: BILIRUBIN,TOTAL 0.7 mg/dL (0.2-1); SGPT/ALT 79 U/L (13-61); TOT PROT 6.2 g/dl (6.4-8.2)
[2020-06-24 08:40] LABS: ALK PHOS 68 U/L (45-117)
[2020-06-24 08:41] LABS: CREATININE 0.8 mg/dL (0.55-1.3); PHOSPHOROUS 4.2 mg/dL (2.5-4.9); SGOT/AST 15 U/L (15-37)
[2020-06-24 08:44] LABS: LDH 262 U/L (87-246)
[2020-06-24] MEDS: ZINC SULFATE 220 MG CAPSULE (FP) PO SCH (10:46)
[2020-06-24] MEDS: ENOXAPARIN NA (PORCINE) 100 MG/1 ML DISP.SYRIN SQ SCH ×2 (10:46→21:56)
[2020-06-24] MEDS: CHOLECALCIFEROL (VIT D3) 1,000 UNIT (25 MCG) TABLET PO SCH (10:46)
[2020-06-24] MEDS: DEXAMETHASONE 4 MG TABLET (FP) PO SCH (10:46)
[2020-06-24] MEDS: ASCORBIC ACID 500 MG TABLET (FP) PO SCH ×2 (10:46→21:57)
[2020-06-24] MEDS: FAMOTIDINE 20 MG TABLET PO SCH ×2 (10:47→21:57)
[2020-06-25] MEDS: INSULIN SLIDING SCALE (NOVOLOG) 1 VIAL SQ SCH ×4 (06:07→22:47)
[2020-06-25] MEDS: INSULIN (LEVEMIR) 100 UNITS/ML UNITS SQ SCH ×2 (06:08→22:10)
[2020-06-25] MEDS: Insulin (LOG) Aspart 100 UNITS/ML VIAL SQ SCH ×3 (06:08→16:40)
[2020-06-25 07:29] LABS: BASO % 0.6 % (0-2.0); EOS % 0.5 % (0-4.5); HEMATOCRIT 43.1 % (35.4-49); HEMOGLOBIN 14.1 GM/dL (11.7-16.9); LYMPH % 21.1 % (8-40); MCH 30.4 pg (25.7-33.7); MCHC 32.6 g/dl (32.0-35.9); MEAN CELL VOLUME 93.1 fl (80-96); MEAN PLT VOLUME 8.8 fl (7.5-11.1); MONO % 7.2 % (3.8-10.2); NEUT % 70.6 % (42.8-82.8); PLATELET COUNT 180 K/MM3 (134-434); RBC 4.63 M/mm3 (4.00-5.60); RDW 13.7 % (11.9-15.9); WHITE BLOOD COUNT 11.9 K/mm3 (4.0-10.0)
[2020-06-25 07:51] LABS: CHLORIDE 104 mmol/L (98-107); POTASSIUM 4.4 mmol/L (3.5-5.1); SODIUM 140 mmol/L (136-145)
[2020-06-25 07:53] LABS: ANION GAP 9 MMOL/L (8-16); BLOOD UREA NITROGEN 26.7 mg/dL (7-18); CALCIUM 8.5 mg/dL (8.5-10.1); CO2 27 mmol/L (21-32); GLUCOSE,RANDOM 192 mg/dL (74-106); MAGNESIUM 2.2 mg/dL (1.8-2.4)
[2020-06-25 07:56] LABS: CREATININE 0.9 mg/dL (0.55-1.3); SGOT/AST 16 U/L (15-37); SGPT/ALT 74 U/L (13-61)
[2020-06-25 07:58] LABS: BILIRUBIN,TOTAL 0.6 mg/dL (0.2-1); TOT PROT 5.7 g/dl (6.4-8.2)
[2020-06-25] MEDS: CHOLECALCIFEROL (VIT D3) 1,000 UNIT (25 MCG) TABLET PO SCH (09:15)
[2020-06-25] MEDS: ZINC SULFATE 220 MG CAPSULE (FP) PO SCH (09:15)
[2020-06-25] MEDS: FAMOTIDINE 20 MG TABLET PO SCH ×2 (09:15→22:11)
[2020-06-25] MEDS: DEXAMETHASONE 4 MG TABLET (FP) PO SCH (09:16)
[2020-06-25] MEDS: ASCORBIC ACID 500 MG TABLET (FP) PO SCH ×2 (09:16→22:11)
[2020-06-25] MEDS: ENOXAPARIN NA (PORCINE) 100 MG/1 ML DISP.SYRIN SQ SCH ×2 (09:16→22:10)
[2020-06-25] MEDS ORDERED: PT OWN MED DRAWER 7, Y5N ONE (09:17)
[2020-06-25 10:04] LABS: ALK PHOS 59 U/L (45-117); LDH 255 U/L (87-246)
[2020-06-25] MEDS ORDERED: Insulin (LOG) Aspart 100 UNITS/ML VIAL SQ SCH ×2 (16:45→16:46)
[2020-06-26] MEDS: INSULIN (LEVEMIR) 100 UNITS/ML UNITS SQ SCH ×2 (06:35→22:22)
[2020-06-26] MEDS: INSULIN SLIDING SCALE (NOVOLOG) 1 VIAL SQ SCH ×4 (06:36→22:31)
[2020-06-26] MEDS: INSULIN (NOVOLOG) ASPART 100 UNITS/ML 10ML VIAL SQ SCH ×3 (06:36→17:11)
[2020-06-26 07:47] LABS: BASO % 0.5 % (0-2.0); EOS % 0.3 % (0-4.5); HEMATOCRIT 42.9 % (35.4-49); HEMOGLOBIN 14.3 GM/dL (11.7-16.9); LYMPH % 18.6 % (8-40); MCH 30.5 pg (25.7-33.7); MCHC 33.3 g/dl (32.0-35.9); MEAN CELL VOLUME 91.8 fl (80-96); MEAN PLT VOLUME 8.9 fl (7.5-11.1); MONO % 7.2 % (3.8-10.2); NEUT % 73.4 % (42.8-82.8); PLATELET COUNT 175 K/MM3 (134-434); RBC 4.67 M/mm3 (4.00-5.60); RDW 13.5 % (11.9-15.9); WHITE BLOOD COUNT 12.3 K/mm3 (4.0-10.0)
[2020-06-26 07:48] LABS: POTASSIUM 4.3 mmol/L (3.5-5.1)
[2020-06-26 07:52] LABS: ALBUMIN 3.1 g/dl (3.4-5.0); BLOOD UREA NITROGEN 23.7 mg/dL (7-18); CALCIUM 8.5 mg/dL (8.5-10.1); MAGNESIUM 2.3 mg/dL (1.8-2.4)
[2020-06-26 07:56] LABS: BILIRUBIN,TOTAL 0.9 mg/dL (0.2-1); CREATININE 0.7 mg/dL (0.55-1.3); PHOSPHOROUS 4.1 mg/dL (2.5-4.9); TOT PROT 5.8 g/dl (6.4-8.2)
[2020-06-26] MEDS: FAMOTIDINE 20 MG TABLET PO SCH ×2 (09:09→22:23)
[2020-06-26] MEDS: ZINC SULFATE 220 MG CAPSULE (FP) PO SCH (09:09)
[2020-06-26] MEDS: ENOXAPARIN NA (PORCINE) 100 MG/1 ML DISP.SYRIN SQ SCH ×2 (09:10→22:23)
[2020-06-26] MEDS: DEXAMETHASONE 4 MG TABLET (FP) PO SCH (09:10)
[2020-06-26] MEDS: CHOLECALCIFEROL (VIT D3) 1,000 UNIT (25 MCG) TABLET PO SCH (09:11)
[2020-06-26] MEDS: ASCORBIC ACID 500 MG TABLET (FP) PO SCH ×2 (09:11→22:23)
[2020-06-27] MEDS: INSULIN SLIDING SCALE (NOVOLOG) 1 VIAL SQ SCH ×2 (06:52→11:06)
[2020-06-27] MEDS: INSULIN (LEVEMIR) 100 UNITS/ML UNITS SQ SCH (06:52)
[2020-06-27] MEDS: INSULIN (NOVOLOG) ASPART 100 UNITS/ML 10ML VIAL SQ SCH ×2 (06:59→11:01)
[2020-06-27] MEDS ORDERED: DEXAMETHASONE 4 MG TABLET (FP) PO SCH (10:00)
[2020-06-27] MEDS: FAMOTIDINE 20 MG TABLET PO SCH (10:00)
[2020-06-27] MEDS: ZINC SULFATE 220 MG CAPSULE (FP) PO SCH (10:00)
[2020-06-27] MEDS: ASCORBIC ACID 500 MG TABLET (FP) PO SCH (10:02)
[2020-06-27] MEDS: ENOXAPARIN NA (PORCINE) 100 MG/1 ML DISP.SYRIN SQ SCH (10:02)
[2020-06-27] MEDS: CHOLECALCIFEROL (VIT D3) 1,000 UNIT (25 MCG) TABLET PO SCH (10:03)
[2020-06-27 14:22] VITALS: BP 115/73; PULSE 81; TEMP 97.5
== END 2020-06-27 18:04 | disposition home or self-care (01) | DRG 177 ==
LOC: JER 07:43 → MERGE 09:51 → JERBED 09:51 → J5S 16:18 → J4S 06-06 01:24
PROVIDERS: ADMIT Internal Medicine; ATTEND Internal Medicine
PROC: XW033E5 Introduction of Remdesivir Anti-infective into Peripheral Vein, Percutaneous Approach, New Technology Group 5 (ICD-10-PCS; 2020-06-04)
PROC: 8E0ZXY6 Isolation (ICD-10-PCS; 2020-06-04)
PROC: XW13325 Transfusion of Convalescent Plasma (Nonautologous) into Peripheral Vein, Percutaneous Approach, New Technology Group 5 (ICD-10-PCS; principal; 2020-06-05)
DX: U07.1 COVID-19 (principal); J12.82 Pneumonia due to coronavirus disease 2019; J96.01 Acute respiratory failure with hypoxia; I45.10 Unspecified right bundle-branch block; E11.9 Type 2 diabetes mellitus without complications; I10 Essential (primary) hypertension; E78.5 Hyperlipidemia, unspecified; E66.9 Obesity, unspecified; Z68.28 Body mass index [BMI] 28.0-28.9, adult; E11.65 Type 2 diabetes mellitus with hyperglycemia
CPT/HCPCS: 36415; 36430; 36600; 71045-TC-FY; 80048; 80053; 81003; 82248; 82550; 82553; 82728; 82803; 82962; 83605; 83615; 83735; 84100; 84484; 85025; 85027; 85379; 85610; 85651; 85730; 86140; 86480; 86850; 86900; 86901; 87040; 87086; 87804; 87899; 93005; 93010; 94010; 94660; 97116-GP; 97161-GP; 99285-25; C9399; C9803; J3262; P9017; U0003

== ENCOUNTER 2021-10-12 21:17 | Emergency (ER) | payer OTHER ==
[2021-10-12 21:31] VITALS: BP 144/96; PULSE 78; TEMP 98.9; BMI 31.0
[2021-10-12] MEDS ORDERED: IBUPROFEN 600 MG TABLET (FP) PO ONE ×2 (22:21→22:49)
== END 2021-10-12 23:17 | disposition home or self-care (01) ==
LOC: JERFT 21:17
DX: M70.51 Other bursitis of knee, right knee (principal)
CPT/HCPCS: 73562-TC-RT-FY; 99283-25

== ENCOUNTER 2024-09-22 14:52 | Emergency (ER) | payer OTHER ==
[2024-09-22 15:02] VITALS: BMI 29.0
[2024-09-22] MEDS ORDERED: KETOROLAC TROMETHAMINE 15 MG/ML VIAL ONE ×2 (16:11→19:13)
[2024-09-22] MEDS ORDERED: LIDOCAINE 4% PATCH TP ONE (16:11)
[2024-09-22] MEDS ORDERED: ACETAMINOPHEN 500 MG TABLET (FP) ONE (16:11)
[2024-09-22] MEDS: KETOROLAC TROMETHAMINE 15 MG/ML VIAL IM ONE (16:20)
[2024-09-22] MEDS: LIDOCAINE 4% PATCH TP ONE (16:21)
[2024-09-22] MEDS: ACETAMINOPHEN 500 MG TABLET (FP) PO ONE (16:21)
[2024-09-22 17:43] LABS: ABSOLUTE IMMATURE GRANULOCYTES 0.08 x10^3/uL (0.0-0.031); BASOPHILS # 0.05 x10^3/uL (0.01-0.08); EOSINOPHIL % 1.6 % (0.8-7.0); EOSINOPHILS # 0.22 x10^3/uL (0.04-0.54); HEMATOCRIT 47.6 % (40.1-51.0); HEMOGLOBIN 15.3 g/dL (13.7-17.5); MCHC 32.1 g/dl (32.3-36.5); MEAN CELL VOLUME 91.7 fl (79.0-92.2); MEAN PLT VOLUME 9.8 fl (9.4-12.4); MONOCYTE # 1.03 x10^3/uL (0.30-0.82); MONOCYTE % 7.5 % (5.3-12.2); PLATELET COUNT 305 x10^3/uL (163-337); RDW 14.5 % (12.2-16.4)
[2024-09-22 18:14] LABS: POTASSIUM 4.6 mmol/L (3.5-5.1)
[2024-09-22 18:16] LABS: ALBUMIN 3.3 g/dl (3.4-5.0); CALCIUM 9.6 mg/dL (8.5-10.1)
[2024-09-22 18:17] LABS: MAGNESIUM 2.1 mg/dL (1.8-2.4)
[2024-09-22 18:21] LABS: BILIRUBIN,TOTAL 0.6 mg/dL (0.2-1)
[2024-09-22 18:22] LABS: CREATININE 0.7 mg/dL (0.55-1.3)
[2024-09-22] MEDS: KETOROLAC TROMETHAMINE 15 MG/ML VIAL IVPUSH ONE ×2 (18:57→19:17)
[2024-09-22 20:27] VITALS: BP 154/93; PULSE 69; RESP 20; TEMP 97.3
[2024-09-22] MEDS ORDERED: LIDOCAINE PATCH REMOVAL MC SCH (22:00)
== END 2024-09-22 20:39 | disposition home or self-care (01) ==
LOC: JER 14:52
PROC: 3E0333Z Introduction of Anti-inflammatory into Peripheral Vein, Percutaneous Approach (ICD-10-PCS; principal; 2024-09-22)
PROC: 3E0233Z Introduction of Anti-inflammatory into Muscle, Percutaneous Approach (ICD-10-PCS; 2024-09-22)
DX: M25.511 Pain in right shoulder (principal); M54.2 Cervicalgia; M54.6 Pain in thoracic spine; R94.31 Abnormal electrocardiogram [ECG] [EKG]
CPT/HCPCS: 36415; 71046-TC-FY; 80053; 83036; 83735; 84484; 85025; 93005; 93010; 99285-25